=== PATIENT | female | born 1955 | race Caucasian/White ===

== ENCOUNTER 2016-07-13 08:41 | Outpatient (CLI) | payer BC | END 2016-07-13 08:42 | disposition home or self-care (01) | DX: Z12.31 Encounter for screening mammogram for malignant neoplasm of breast (principal) ==

== ENCOUNTER 2017-02-01 15:33 | Outpatient (CLI) | payer BC ==
--- NOTE | 2017-02-01 16:38 | Ultrasound Preliminary Report ---
Exam: US Duplex Ext Veins Right IMPRESSION: No evidence for deep venous thrombosis. [facility] SITE ID: [id number]
--- NOTE | 2017-02-01 16:52 | Ultrasound Report ---
EXAM: RIGHT LOWER EXTREMITY VENOUS ULTRASOUND EXAM DATE: 02/01/2017 04:13 PM. CLINICAL HISTORY: Right leg pain, swelling. COMPARISON: None. TECHNIQUE: Real-time sonographic vascular imaging was performed by the diesel locomotive crane operator through the lower extremity utilizing both color-flow and Doppler spectral analysis. Multiple solar sales representative and assessor static sammy ges were saved for review. FINDINGS: Common Femoral Vein (CFV): Normal. CFV-GSV Junction: Normal. Profunda Femoral Vein (PFV): Normal. Femoral Vein (FV) Prox: Normal. Femoral Vein (FV) Mid: Normal. Femoral Vein (FV) Dist: Normal. Popliteal Vein: Normal. Posterior Tibial Veins: Normal. Peroneal Veins: Normal. Contralateral Side CFV: Normal. Other: None. IMPRESSION: No evidence for deep venous thrombosis. [facility] Referring Provider Line: [phone] SITE ID: [id number]
== END 2017-02-01 15:34 | disposition home or self-care (01) ==
LOC: DI 15:33
PROVIDERS: ATTEND Internal Medicine
DX: M79.604 Pain in right leg (principal); R22.41 Localized swelling, mass and lump, right lower limb

== ENCOUNTER 2018-09-02 20:42 | Outpatient (CLI) | payer BC ==
--- NOTE | 2018-09-02 22:31 | Ultrasound Report ---
Reason: EDEMA/THIGH PAIN Procedure Date: 09/02/2018 Accession Number: [id number] / [id number] Procedure: US - Duplex Ext Veins Right CPT Code: FULL RESULT: EXAM: RIGHT LOWER EXTREMITY VENOUS ULTRASOUND EXAM DATE: 09/02/2018 09:29 PM. CLINICAL HISTORY: EDEMA/THIGH PAIN. COMPARISON: DUPLEX EXT VEINS RIGHT 02/01/2017 3:43 PM. TECHNIQUE: Real-time sonographic vascular imaging was performed by the teradata developer through the lower extremity utilizing both color-flow and Doppler spectral analysis. Multiple consumer sales representative static images were saved for review. FINDINGS: Common Femoral Vein (CFV): Normal. CFV-GSV Junction: Normal. Profunda Femoral Vein (PFV): Normal. Femoral Vein (FV) Prox: Normal. Femoral Vein (FV) Mid: Normal. Femoral Vein (FV) Dist: Normal. Popliteal Vein: Normal. Posterior Tibial Veins: Normal. Peroneal Veins: Normal. Other: None. IMPRESSION: No evidence for deep venous thrombosis. [facility]
--- NOTE | 2018-09-02 22:39 | Ultrasound Report ---
Reason: EDEMA/THIGH PAIN Procedure Date: 09/02/2018 Accession Number: [id number] / [id number] Procedure: US - Ext Limited Non Vascular CPT Code: FULL RESULT: EXAM: RIGHT LOWER EXTREMITY ULTRASOUND - LIMITED EXAM DATE: 09/02/2018 09:23 PM. CLINICAL HISTORY: EDEMA/THIGH PAIN. COMPARISON: None. TECHNIQUE: Real-time scanning was performed with static images obtained. FINDINGS: Imaging of the thigh demonstrates no significant abnormalities. No evidence of mass or focal fluid collection. IMPRESSION: Imaging of the thigh demonstrates no significant sonographic abnormalities. [facility]
== END 2018-09-02 20:43 | disposition home or self-care (01) ==
LOC: DI 20:42
PROVIDERS: ATTEND Internal Medicine
DX: M79.604 Pain in right leg (principal); R60.0 Localized edema
CPT/HCPCS: 76882

== ENCOUNTER 2018-11-09 19:20 | Emergency (ER) | payer BC ==
--- NOTE | 2018-11-09 20:33 | ED Physician Documentation ---
PD HPI UPPER EXT INJURY - Stated complaint Stated Complaint: RT HAND LAC - Chief complaint Chief Complaint: Laceration - History obtained from History obtained from: Patient - History of Present Illness Location: Right, Finger Type of injury: Laceration Where injury occurred: Home Timing - onset: Other Timing - duration: Hours Timing - details: Abrupt onset Recently seen: Not recently seen - Additonal information Additional information: This is a 63-year-old woman who sliced her right index finger on a mandolin slicer arreola post. This happened approximately an hour prior to presentation. She said she could get the bleeding controlled but now is controlled and it does not even look that bad. Last tetanus vaccine was greater than 5 years ago. 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 - Present Medications Home Medications: Ambulatory Orders Medication Instructions Recorded Confirmed carBAMazepine [Tegretol] 200 mg PO DAILY 05/17/13 11/09/18 - Allergies Allergies/Adverse Reactions: Allergies Allergy/AdvReac Type Severity Reaction Status Date / Time No Known Drug Allergies Allergy Verified 05/17/13 05:59 - Social History Does the pt smoke?: No Smoking Status: Never smoker Does the pt drink ETOH?: No Does the pt have substance abuse?: No - Immunizations Immunizations are current?: No Immunizations: TDAP >10years/unknown - POLST Patient has POLST: No PD ED PE NORMAL - Vitals Vital signs reviewed: Yes - General General: Alert and oriented X 3, No acute distress, Well developed/nourished - HEENT HEENT: Atraumatic - Cardiac Cardiac: RRR - Respiratory Respiratory: No respiratory distress - Extremities Extremities: Other (Laceration less than 1 cm on the pad of her right index finger. Bleeding is controlled.There does not appear to be a flap.) - Neuro Neuro: Alert and oriented X 3 Results - Vitals Vitals: Vital Signs - 24 hr 11/09/18 19:23 Temperature 36.7 C Heart Rate 70 Respiratory 14 Rate Blood Pressure 149/78 H O2 Saturation 95 Oxygen O2 Source Room air PD MEDICAL DECISION MAKING - ED course ED course: Patient was updated on her tetanus vaccine. She did not want to have this sutured. Will cover it with a bulky dressing and she is instructed on wound care. Departure - Departure Disposition: 01 Home, Self Care Clinical Impression: Laceration Condition: Good Instructions: ED Laceration Small Superf No Sutr Follow-Up: doctor, your [Other] Comments: I would recommend to keep our bandage on for about 48 hours to keep it clean and dry. After that you can remove the bandage and wash the wound. Keep it covered while it heals.
[2018-11-09] MEDS ORDERED: TETANUS/DIPHTHERIA/PERTUSSIS 0.5 ML SYRINGE IM ONE (20:36)
[2018-11-09 21:01] VITALS: BP 146/84
== END 2018-11-09 21:01 | disposition home or self-care (01) ==
LOC: ED 19:20
DX: S61.210A Laceration without foreign body of right index finger without damage to nail, initial encounter (principal); W27.4XXA Contact with kitchen utensil, initial encounter; Y93.G1 Activity, food preparation and clean up; Y92.009 Unspecified place in unspecified non-institutional (private) residence as the place of occurrence of the external cause; Z23 Encounter for immunization
CPT/HCPCS: 90471; 99282; 99283

== ENCOUNTER 2019-01-21 18:03 | Outpatient (CLI) | payer BC ==
[2019-01-21 18:37] LABS: ALBUMIN 4.3 g/dL (3.2-5.5); ALBUMIN/GLOBULIN RATIO 1.5 (1.0-2.2); ALKALINE PHOSPHATASE 83 IU/L (42-121); ALT ALANINE AMINOTRANSFERASE 20 IU/L (10-60); AST ASPARTATE AMINOTRANSFERASE 23 IU/L (10-42); BILIRUBIN,TOTAL 0.4 mg/dL (0.2-1.0); BUN - BLOOD UREA NITROGEN 23 mg/dL (6-20); CALCIUM 9.4 mg/dL (8.5-10.3); CARBON DIOXIDE - CO2 26 mmol/L (21-32); CHLORIDE 104 mmol/L (101-111); CREATININE 0.7 mg/dL (0.4-1.0); GFR - MDRD 85 (>89); GLUCOSE 124 mg/dL (70-100); SODIUM 142 mmol/L (135-145); TOTAL PROTEIN 7.1 g/dL (6.7-8.2)
[2019-01-21 19:06] LABS: CRP - C-REACTIVE PROTEIN < 1.0 mg/dL (0-1.0)
[2019-01-21 19:12] LABS: BASOPHILS # (AUTO) 0.1 10^3/uL (0.0-0.1); BASOPHILS % (AUTO) 0.8 %; EOSINOPHILS # (AUTO) 0.1 10^3/uL (0.0-0.7); EOSINOPHILS % (AUTO) 1.4 %; HGB - HEMOGLOBIN 13.3 g/dL (12.0-16.0); LYMPHOCYTES # (AUTO) 1.9 10^3/uL (1.5-3.5); LYMPHOCYTES % (AUTO) 26.4 %; MEAN CORPUSCULAR HEMOGLOBIN 31.1 pg (27.0-31.0); MEAN CORPUSCULAR HGB CONC 33.9 g/dL (32.0-36.0); MEAN CORPUSCULAR VOLUME 91.6 fL (81.0-99.0); MEAN PLATELET VOLUME 10.8 fL (7.9-10.8); MONOCYTES # (AUTO) 0.6 10^3/uL (0.0-1.0); MONOCYTES % (AUTO) 8.7 %; NEUTROPHILS # (AUTO) 4.4 10^3/uL (1.5-6.6); NEUTROPHILS % (AUTO) 62.4 %; PLT - PLATELET COUNT 213 10^3/uL (130-450); RED BLOOD COUNT 4.28 10^6/uL (4.20-5.40); RED CELL DISTRIBUTION WIDTH 13.1 % (12.0-15.0); WHITE BLOOD COUNT 7.1 x10^3/uL (4.8-10.8)
[2019-01-21 21:08] LABS: RHEUMATOID FACTOR NEGATIVE (Negative)
[2019-01-21 21:51] LABS: DIFFERENTIAL COMMENT MANUAL=AUTO DIFF; PLATELET ESTIMATE, MANUAL NORMAL (130-450,000) (NORMAL); PLATELET MORPHOLOGY NORMAL APPEARANCE (NORMAL); RBC MORPHOLOGY (MULTIPLE) NORMAL APPEARANCE (NORMAL)
--- NOTE | 2019-01-22 10:27 | XRAY Report ---
Reason: Knee Effusion, Right Procedure Date: 01/21/2019 Accession Number: [id number] / [id number] Procedure: XR - Knee 3 View RT CPT Code: FULL RESULT: EXAM: RIGHT KNEE RADIOGRAPHY EXAM DATE: 01/21/2019 06:40 PM. CLINICAL HISTORY: Right knee effusion. Swelling. Pain for 8 months. COMPARISON: None. TECHNIQUE: 3 views. FINDINGS: Bones: No acute fracture or bony lesion. Mild degenerative spurring. Joints: Mild narrowing of the medial and patellofemoral compartment. No knee effusion. No dislocation. Soft Tissues: Normal. No soft tissue swelling. IMPRESSION: 1. No osseous abnormalities. 2. Mild degenerative changes of the right knee. [facility]
[2019-01-23 12:47] LABS: ANA SCREEN NEGATIVE (NEGATIVE)
== END 2019-01-21 18:04 | disposition home or self-care (01) ==
LOC: LAB 18:03
PROVIDERS: ATTEND Family Medicine
DX: M25.461 Effusion, right knee (principal)
CPT/HCPCS: 36415; 80053; 85025; 85651; 86038; 86140; 86430

== ENCOUNTER 2021-04-04 08:05 | Outpatient (CLI) | payer BC ==
[2021-04-04 08:24] LABS: BASOPHILS % (AUTO) 0.8 %; EOSINOPHILS % (AUTO) 0.8 %; HCT - HEMATOCRIT 42.2 % (37.0-47.0); HGB - HEMOGLOBIN 14.1 g/dL (12.0-16.0); LYMPHOCYTES % (AUTO) 20.9 %; MEAN CORPUSCULAR HEMOGLOBIN 30.6 pg (27.0-31.0); MEAN CORPUSCULAR HGB CONC 33.4 g/dL (32.0-36.0); MEAN CORPUSCULAR VOLUME 91.5 fL (81.0-99.0); MONOCYTES # (AUTO) 0.5 10^3/uL (0.0-1.0); MONOCYTES % (AUTO) 10.3 %; NEUTROPHILS # (AUTO) 3.3 10^3/uL (1.5-6.6); NEUTROPHILS % (AUTO) 66.8 %; PLT - PLATELET COUNT 199 10^3/uL (130-450); RED BLOOD COUNT 4.61 10^6/uL (4.20-5.40); RED CELL DISTRIBUTION WIDTH 12.7 % (12.0-15.0)
[2021-04-04 08:35] LABS: ALBUMIN 4.5 g/dL (3.2-5.5); ALBUMIN/GLOBULIN RATIO 1.7 (1.0-2.2); ALKALINE PHOSPHATASE 100 IU/L (42-121); ALT ALANINE AMINOTRANSFERASE 16 IU/L (10-60); AST ASPARTATE AMINOTRANSFERASE 18 IU/L (10-42); BILIRUBIN,TOTAL 0.7 mg/dL (0.2-1.0); BUN - BLOOD UREA NITROGEN 23 mg/dL (6-20); CALCIUM 9.1 mg/dL (8.5-10.3); CARBON DIOXIDE - CO2 28 mmol/L (21-32); CHLORIDE 102 mmol/L (101-111); CHOL/HDL RATIO 4.9 (<4.4); CHOLESTEROL 241 mg/dL; CREATININE 0.7 mg/dL (0.4-1.0); GFR - MDRD 84 (>89); GLUCOSE 107 mg/dL (70-100); HDL CHOLESTEROL 49 mg/dL; LDL CHOLESTEROL,CALCULATED 149 mg/dL; POTASSIUM 3.3 mmol/L (3.5-5.0); SODIUM 139 mmol/L (135-145); TOTAL PROTEIN 7.1 g/dL (6.7-8.2); TRIGLYCERIDES 215 mg/dL; VLDL CHOLESTEROL 43 mg/dL
[2021-04-04 08:46] LABS: THYROID STIMULATING HORMONE 1.77 uIU/mL (0.34-5.60)
[2021-04-04 09:35] LABS: ESTIMATED AVERAGE GLUCOSE 108 mg/dL (70-100); HEMOGLOBIN A1c% 5.4 % (4.27-6.07)
== END 2021-04-04 08:06 | disposition home or self-care (01) ==
LOC: LAB 08:05
PROVIDERS: ATTEND Family Medicine
DX: Z00.00 Encounter for general adult medical examination without abnormal findings (principal); R73.9 Hyperglycemia, unspecified
CPT/HCPCS: 36415; 80053; 80061; 83036; 83721; 84443; 85025

== ENCOUNTER 2021-05-19 08:17 | Outpatient (CLI) | payer BC ==
--- NOTE | 2021-05-22 12:52 | Mammography Report ---
BILATERAL DIGITAL SCREENING MAMMOGRAM 3D/2D: 05/19/2021 CLINICAL: Routine screening. Comparison is made to exams dated: 07/13/2016 mammogram, 06/17/2015 ultrasound, 06/17/2015 mammogram, 02/05 mammogram, 12/05/2012 mammogram, and 08/25/2010 mammogram - [facility]. The ti ssue of both breasts is predominantly fatty. No significant masses, calcifications, or other findings are seen in either breast. There has been no significant interval change. IMPRESSION: NEGATIVE There is no mammographic evidence of malignancy. A 1 year screening mammogram is recommended. This exam was interpreted at Station ID: [id number]. NOTE: For mammograms, a report in lay terms will be sent to the patient. Approximately 15% of breast malignancies will not be visualized mammographically. In the management of a palpable breast mass, a negative mammogram must not discourage biopsy of a clinically suspicious lesion. Electronically Signed By: Tay [email or web address]:05/19/2021 13:07:24 ACR BI-RADS Category 1: Negative 3341F PARENCHYMAL PATTERN: (F) - The breast(s) demonstrate(s) diffuse fatty replacement. BI-RADS CATEGORY: (1) - 1 RECOMMENDATION: (ANNUAL) - Recommend routine annual screening mammography. [id number] 1 year screening LATERALITY: (B)
== END 2021-05-19 08:18 | disposition home or self-care (01) ==
LOC: DI 08:17
PROVIDERS: ATTEND Family Medicine
DX: Z12.31 Encounter for screening mammogram for malignant neoplasm of breast (principal)

== ENCOUNTER 2022-08-13 07:29 | Outpatient (CLI) | payer BC ==
[2022-08-13 07:44] LABS: BASOPHILS # (AUTO) 0.1 10^3/uL (0.0-0.1); EOSINOPHILS % (AUTO) 0.6 %; HCT - HEMATOCRIT 40.7 % (37.0-47.0); HGB - HEMOGLOBIN 13.9 g/dL (12.0-16.0); LYMPHOCYTES % (AUTO) 21.4 %; MEAN CORPUSCULAR HGB CONC 34.2 g/dL (32.0-36.0); MEAN CORPUSCULAR VOLUME 90.6 fL (81.0-99.0); MEAN PLATELET VOLUME 9.9 fL (7.9-10.8); MONOCYTES # (AUTO) 0.4 10^3/uL (0.0-1.0); MONOCYTES % (AUTO) 8.8 %; NEUTROPHILS # (AUTO) 3.3 10^3/uL (1.5-6.6); NEUTROPHILS % (AUTO) 67.6 %; PLT - PLATELET COUNT 214 10^3/uL (130-450); RED BLOOD COUNT 4.49 10^6/uL (4.20-5.40); RED CELL DISTRIBUTION WIDTH 13.2 % (12.0-15.0); WHITE BLOOD COUNT 4.9 x10^3/uL (4.8-10.8)
[2022-08-13 07:58] LABS: ALBUMIN/GLOBULIN RATIO 1.5 (1.0-2.2); ALKALINE PHOSPHATASE 84 IU/L (42-121); ALT ALANINE AMINOTRANSFERASE 21 IU/L (10-60); AST ASPARTATE AMINOTRANSFERASE 22 IU/L (10-42); BILIRUBIN,TOTAL 0.7 mg/dL (0.2-1.0); BUN - BLOOD UREA NITROGEN 20 mg/dL (6-20); CALCIUM 9.1 mg/dL (8.5-10.3); CARBON DIOXIDE - CO2 28 mmol/L (21-32); CHLORIDE 106 mmol/L (101-111); CHOLESTEROL 230 mg/dL; CREATININE 0.7 mg/dL (0.4-1.0); GFR - MDRD 84 (>89); GLUCOSE 107 mg/dL (70-100); HDL CHOLESTEROL 57 mg/dL; LDL CHOLESTEROL,CALCULATED 151 mg/dL; LDL/HDL RATIO 2.6 (<4.4); POTASSIUM 3.6 mmol/L (3.5-5.0); SODIUM 141 mmol/L (135-145); TOTAL PROTEIN 6.7 g/dL (6.7-8.2); TRIGLYCERIDES 108 mg/dL; VLDL CHOLESTEROL 22 mg/dL
[2022-08-13 08:10] LABS: THYROID STIMULATING HORMONE 1.85 uIU/mL (0.34-5.60)
[2022-08-13 09:46] LABS: ESTIMATED AVERAGE GLUCOSE 108 mg/dL (70-100); HEMOGLOBIN A1c% 5.4 % (4.27-6.07)
== END 2022-08-13 07:30 | disposition home or self-care (01) ==
LOC: LAB 07:29
PROVIDERS: ATTEND Family Medicine
DX: R56.9 Unspecified convulsions (principal); R73.9 Hyperglycemia, unspecified
CPT/HCPCS: 36415; 80053; 80061; 83036; 83721; 84443; 85025

== ENCOUNTER 2022-10-05 07:33 | Outpatient (CLI) | payer BC ==
[2022-10-05 08:37] LABS: GLUCOSE, URINE (UA) NEGATIVE (NEGATIVE); KETONES,URINE (UA) TRACE mg/dL (NEGATIVE); LEUKOCYTE ESTERASE, URINE NEGATIVE (NEGATIVE); NITRITE,URINE NEGATIVE (NEGATIVE); OCCULT BLOOD,URINE TRACE-INTA (NEGATIVE); PH,URINE 5.5 PH (5.0-7.5); PROTEIN,URINE 30 mg/dL (NEGATIVE); UROBILINOGEN,URINE 0.2 (NORMAL) E.U./dL (NORMAL)
[2022-10-05 09:17] LABS: BACTERIA,URINE Few /HPF (None Seen); BILIRUBIN,URINE NEGATIVE (NEGATIVE); CLARITY,URINE HAZY (CLEAR); CRYSTALS,URINE 11-25 Ca Oxalate /LPF; ICTOTEST,URINE NEGATIVE; RBC,URINE 0-5 /HPF (0-5); SQUAMOUS EPITHELIAL CELL,UR FEW Squamous (<= Few); WBC,URINE 0-3 /HPF (0-5)
== END 2022-10-05 07:34 | disposition home or self-care (01) ==
LOC: LAB 07:33
PROVIDERS: ATTEND Family Medicine
DX: R32 Unspecified urinary incontinence (principal)
CPT/HCPCS: 81001; 87086

== ENCOUNTER 2022-11-07 19:29 | Observation (INO) | payer BC ==
--- NOTE | 2022-11-07 19:45 | ED Physician Documentation ---
PD HPI ABD PAIN - Stated complaint Stated Complaint: ABD PX,WEAKNESS - Chief complaint Chief Complaint: Abd Pain - History obtained from History obtained from: Patient - Additional information Additional information: 67-year-old woman with history of remote cholecystectomy and well-controlled epilepsy presents with diffuse abdominal cramping starting this morning. It is associated with nausea but no vomiting. She has had normal bowel movements including 1 today with this. No fevers. She did ate lunch which did not make her pain worse. That said she does have decreased appetite. 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, Other - Present Medications Home Medications: Ambulatory Orders Medication Instructions Recorded Confirmed carBAMazepine [Tegretol] 200 mg PO DAILY 05/17/13 11/09/18 - Allergies Allergies/Adverse Reactions: Allergies Allergy/AdvReac Type Severity Reaction Status Date / Time No Known Drug Allergies Allergy Verified 11/07/22 19:33 - Social History Does the pt smoke?: No Smoking Status: Never smoker Does the pt drink ETOH?: No Does the pt have substance abuse?: No - Immunizations Immunizations are current?: No Immunizations: TDAP >10years/unknown - POLST Patient has POLST: No PD ED PE NORMAL - Vitals Vital signs reviewed: Yes - General General: Alert and oriented X 3, No acute distress - Cardiac Cardiac: RRR, No murmur - Respiratory Respiratory: No respiratory distress, Clear bilaterally - Abdomen Abdomen: Other (Mild right lower quadrant tenderness without surgical signs. Normal bowel sounds.) - Neuro Neuro: Alert and oriented X 3, Normal speech Results - Vitals Vitals: Vital Signs - 24 hr 11/07/22 11/07/22 19:33 20:19 Temperature 36.5 C Heart Rate 79 78 Respiratory 16 16 Rate Blood Pressure 140/78 H 139/87 H O2 Saturation 96 100 Oxygen O2 Source Room air - Labs Labs: Laboratory Tests 11/07/22 11/07/22 11/07/22 19:38 19:58 19:58 WBC 9.1 RBC 4.68 Hgb 14.3 Hct 42.5 MCV 90.8 MCH 30.6 MCHC 33.6 RDW 12.7 Plt Count 251 MPV 10.2 Neut # (Auto) 7.5 H Lymph # (Auto) 1.0 L [place] # (Auto) 0.5 Eos # (Auto) 0.0 Baso # (Auto) 0.1 Absolute Nucleated RBC 0.00 Nucleated RBC % 0.0 Sodium 139 Potassium 3.5 Chloride 101 Carbon Dioxide 29 Anion Gap 9.0 BUN 13 Creatinine 0.8 Estimated GFR (MDRD) 72 L Glucose 134 H Calcium 9.7 Total Bilirubin 0.5 AST 22 ALT 18 Alkaline Phosphatase 99 Total Protein 7.2 Albumin 4.4 Globulin 2.8 Albumin/Globulin Ratio 1.6 Lipase 36 Urine Color YELLOW Urine Clarity CLEAR Urine pH 7.5 Ur Specific [place] 1.010 Urine Protein NEGATIVE Urine Glucose (UA) NEGATIVE Urine Ketones NEGATIVE Urine Occult Blood SMALL H Urine Nitrite NEGATIVE Urine Bilirubin NEGATIVE Urine Urobilinogen 0.2 (NORMAL) Ur Leukocyte Esterase SMALL H Urine RBC 6-10 H Urine WBC 4-5 Ur Squamous Epith Cells FEW Squamous Urine Bacteria Rare Ur Microscopic Review INDICATED Urine Culture Comments INDICATED - Rads (name of study) CT a/p Relevant Findings:: Final report received, EMP independent interpretation of test PD Medical Decision Making - ED course ED course: 67-year-old woman with history of hysterectomy presents with crampy abdominal pain today and slightly hyperactive tinkling bowel sounds. She is a little tender and CT demonstrating partial SBO versus ileus. Spoke with Dr. Marco Antonio rojas, our on-call surgeon at 10 PM and he will see the patient and admit her. Patient had not initially wanted any pain medication but has changed her mind at that time as well. Departure - Departure Disposition: 66 [facility] DC/Xfer Clinical Impression: SBO (small bowel obstruction) Condition: Stable
[2022-11-07 19:47] LABS: BILIRUBIN,URINE NEGATIVE (NEGATIVE); GLUCOSE, URINE (UA) NEGATIVE (NEGATIVE); KETONES,URINE (UA) NEGATIVE (NEGATIVE); LEUKOCYTE ESTERASE, URINE SMALL (NEGATIVE); NITRITE,URINE NEGATIVE (NEGATIVE); OCCULT BLOOD,URINE SMALL (NEGATIVE); PH,URINE 7.5 PH (5.0-7.5); PROTEIN,URINE NEGATIVE (NEGATIVE); UROBILINOGEN,URINE 0.2 (NORMAL) E.U./dL (NORMAL)
[2022-11-07 19:50] LABS: CLARITY,URINE CLEAR (CLEAR)
[2022-11-07 20:00] LABS: BACTERIA,URINE Rare /HPF (None Seen); SQUAMOUS EPITHELIAL CELL,UR FEW Squamous (<= Few)
[2022-11-07 20:03] LABS: BASOPHILS # (AUTO) 0.1 10^3/uL (0.0-0.1); BASOPHILS % (AUTO) 0.5 %; HCT - HEMATOCRIT 42.5 % (37.0-47.0); HGB - HEMOGLOBIN 14.3 g/dL (12.0-16.0); LYMPHOCYTES % (AUTO) 11.3 %; MEAN CORPUSCULAR HEMOGLOBIN 30.6 pg (27.0-31.0); MEAN CORPUSCULAR HGB CONC 33.6 g/dL (32.0-36.0); MEAN CORPUSCULAR VOLUME 90.8 fL (81.0-99.0); MEAN PLATELET VOLUME 10.2 fL (7.9-10.8); MONOCYTES # (AUTO) 0.5 10^3/uL (0.0-1.0); MONOCYTES % (AUTO) 5.7 %; NEUTROPHILS # (AUTO) 7.5 10^3/uL (1.5-6.6); NEUTROPHILS % (AUTO) 82.3 %; PLT - PLATELET COUNT 251 10^3/uL (130-450); RED BLOOD COUNT 4.68 10^6/uL (4.20-5.40); RED CELL DISTRIBUTION WIDTH 12.7 % (12.0-15.0); WHITE BLOOD COUNT 9.1 x10^3/uL (4.8-10.8)
[2022-11-07 20:16] LABS: ALBUMIN 4.4 g/dL (3.2-5.5); ALBUMIN/GLOBULIN RATIO 1.6 (1.0-2.2); BILIRUBIN,TOTAL 0.5 mg/dL (0.2-1.0); CALCIUM 9.7 mg/dL (8.5-10.3); CREATININE 0.8 mg/dL (0.4-1.0); POTASSIUM 3.5 mmol/L (3.5-5.0); TOTAL PROTEIN 7.2 g/dL (6.7-8.2)
[2022-11-07] MEDS ORDERED: iohexoL-300 100 ML VIAL IVP ONE (20:59)
--- NOTE | 2022-11-07 21:49 | CT Report ---
PROCEDURE: ABDOMEN/PELVIS W INDICATIONS: abd pain CONTRAST: 100mL Omni 350 TECHNIQUE: After the administration of intravenous contrast, 5 mm thick sections acquired from the diaphragms to the symphysis. 5 mm thick coronal and sagittal reformats were acquired. For radiation dose reducti on, the following was used: automated exposure control, adjustment of mA and/or kV according to tiburcio ent size. COMPARISON: None. FINDINGS: Image quality: Excellent. Lung bases:There is mild atelectasis and scarring in the lung bases. Heart: Heart is normal in size. There is a small hiatal hernia. ABDOMEN: Liver:There are 2 small hypodense foci within the liver which are too small to characterize but like ly represent cysts. There is mild hypoattenuation of the liver suggestive of fatty infiltration. Gallbladder: Within normal limits without calcified gallstones. Biliary ducts: No biliary ductal dilatation. Pancreas: Unremarkable. Spleen: Normal in size. Adrenal Glands: No adrenal nodules. Kidneys and Ureters: No hydronephrosis. Stomach and Bowel:There is mild fluid distention of multiple loops of small bowel proximally predomi nately in the left upper quadrant, measuring up to 3.0 cm with air-fluid levels. There is a gradual t ransition point in the left lower quadrant as seen on series 3 image 52 and coronal series 6 image 18 . More distal loops of small bowel are nondistended. No pericecal inflammatory changes to suggest kerry endicitis. The colon demonstrates a small to moderate amount of fecal loading. Peritoneum: No abnormal intraperitoneal fluid. No free air. Ventral Wall: No hernia. Abdominal Nodes: No retroperitoneal or mesenteric adenopathy by size criteria. Vessels: Aorta and inferior vena cava are normal in size. PELVIS: Pelvic Organs: Unremarkable. Bladder: Unremarkable. Pelvic Nodes: No enlarged lymph nodes. Miscellaneous: No inguinal hernias. Bones: Visualized osseous structures demonstrate no suspicious lesions. IMPRESSION: 1. Mild segmental distention of the proximal small bowel with a gradual transition point in the left lower quadrant. The findings are compatible with a partial or early small bowel obstruction versus an ileus. Reviewed by: Devin Bhakta MD on 11/07/2022 9:47 PM PDT Approved by: Devin Bhakta MD on 11/07/2022 9:47 PM PDT Station ID: [id number]
[2022-11-07] MEDS ORDERED: D5.45NS W/20 MEQ KCL 1,000 ML IV STA (21:59)
[2022-11-07] MEDS ORDERED: KETOROLAC 15 MG/ML VIAL IVP STA (21:59)
[2022-11-07] MEDS ORDERED: MORPHINE 2 MG/ML CARPUJECT IVP STA (22:00)
[2022-11-07] MEDS ORDERED: HYDROmorphone 0.5 MG/0.5 ML SYRINGE IVP PRN (22:36)
[2022-11-07] MEDS ORDERED: SODIUM CHLORIDE FLUSH 0.9% 10 ML SYRINGE IVP PRN (22:36)
[2022-11-07] MEDS ORDERED: ONDANSETRON 4 MG/2 ML VIAL IVP PRN (22:36)
--- NOTE | 2022-11-07 22:51 | HISTORY & PHYSICAL EXAMINATION ---
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 Throughout the day the cramping persisted, worsened, and was associated with nausea and anorexia. She came to the ED for evaluation and was found to have CT image evidence of a partial or early SBO. She denies previous episodes of discomfort. Her PSH includes a hysterectomy about 20 years ago. She denies fevers but has felt chilled. History - Past Medical History Respiratory: reports: None Neuro: reports: Seizure disorder Endocrine/Autoimmune: reports: None GI: reports: Other (Obstipation) PLUGMAN: reports: None : reports: None HEENT: reports: None Psych: reports: None Musculoskeletal: reports: None Derm: reports: None MRSA Hx?: No - Past Surgical History /PLUGMAN: reports: Hysterectomy, Other - Family & Social History Living arrangement: At home Living Situation: With spouse/s.o. - Substance History Use: Uses substance without health or social issues: NONE - POLST Patient has POLST: No Meds/Allgy - Home Medications Home Medications: Ambulatory Orders Medication Instructions Recorded Confirmed carBAMazepine [Tegretol] 200 mg PO DAILY 05/17/13 11/09/18 - Allergies Allergies/Adverse Reactions: Allergies Allergy/AdvReac Type Severity Reaction Status Date / Time No Known Drug Allergies Allergy Verified 11/07/22 19:33 Review of Systems - Constitutional Constitutional: reports: Chills, Poor appetite - Gastrointestinal Gastrointestinal: reports: Abdominal pain, Abdominal distention, Poor appetite, Other (Obstipation) - All Other Systems All Other Systems: reports: Reviewed and negative Exam - Vital Signs Vital Signs: Vital Signs x48h Temp Pulse Resp BP Pulse Ox 11/07/22 22:20 62 16 172/97 H 97 11/07/22 22:17 61 18 175/97 H 96 11/07/22 20:19 78 16 139/87 H 100 11/07/22 19:33 97.7 F 79 16 140/78 H 96 - Physical Exam General Appearance: positive: Alert, Mild distress Eyes Bilateral: positive: Normal inspection, PERRL, EOMI ENT: positive: Pharynx nml, No signs of dehydration Neck: positive: Nml inspection, Thyroid nml, Trachea midline Respiratory: positive: Chest non-tender, No respiratory distress, Breath sounds nml Cardiovascular: positive: Regular rate & rhythm, No murmur Peripheral Pulses: positive: 2+ Abdomen: positive: Non-tender, Nml bowel sounds, Other (Distended, tympanic percussion note upper quadrants) Skin: positive: Color nml, Warm Extremities: positive: Non-tender, Full ROM Neurologic/Psychiatric: positive: Oriented x3 Conclusion/Plan - Lab Results Fish Bones: 11/07/22 19:58 11/07/22 19:58 - Other Other Results/Comments: Images: CT ABD/Pelvis: Distended proximal small bowel and stomach with decompressed distal small bowel. No evidence of bowel ischemia. Assessment: 1) SBO, unknown if partial or complete. No clinical or image evidence of bowel ischemia at this time 2) Seizure disorder Plan: 1) Admit to Observation status 2) Continue IV hydration with Ringers 3) NGT decompression to encourage early bowel motility and decrease discomfort from abdominal bloating and cramping 4) May ambulate with assistance 5) Tegretol tonight with NGT clamped 6) Labs in am 7) Consider small bowel follow through in am if not improved Marco Antonio Pablo MD General Surgery Service
[2022-11-07] MEDS ORDERED: KETOROLAC 30 MG/ML VIAL IVP SCH (23:00)
--- NOTE | 2022-11-08 01:41 | XRAY Report ---
PROCEDURE: Chest for Line Placement INDICATIONS: line placement TECHNIQUE: One view of the chest was acquired. COMPARISON: None. FINDINGS: Surgical changes and devices: There is a nasogastric tube extending into the stomach.. Lungs and pleura: No pleural effusions or pneumothorax. Lungs are clear. Mediastinum: Mediastinal contours appear normal. Heart size is normal. Bones and chest wall: No suspicious bony lesions. Overlying soft tissues appear unremarkable. IMPRESSION: 1. Nasogastric tube extends into the stomach. 2. No acute cardiopulmonary disease. Reviewed by: Devin Kamara MD on 11/08/2022 1:40 AM PDT Approved by: Devin Kamara MD on 11/08/2022 1:40 AM PDT Station ID: [id number]
[2022-11-08] MEDS: carBAMazepine 200 MG TABLET PO SCH ×4 (01:54→20:52)
[2022-11-08] MEDS: LACTATED RINGERS 1,000 ML IV SCH ×3 (01:54→17:22)
[2022-11-08] MEDS: SODIUM CHLORIDE FLUSH 0.9% 10 ML SYRINGE IVP SCH ×3 (01:55→18:23)
[2022-11-08 06:18] LABS: BASOPHILS # (AUTO) 0.1 10^3/uL (0.0-0.1); BASOPHILS % (AUTO) 0.6 %; EOSINOPHILS % (AUTO) 0.1 %; HGB - HEMOGLOBIN 12.9 g/dL (12.0-16.0); LYMPHOCYTES # (AUTO) 1.4 10^3/uL (1.5-3.5); MEAN CORPUSCULAR HEMOGLOBIN 30.4 pg (27.0-31.0); MEAN CORPUSCULAR HGB CONC 33.1 g/dL (32.0-36.0); MEAN CORPUSCULAR VOLUME 91.8 fL (81.0-99.0); MEAN PLATELET VOLUME 10.1 fL (7.9-10.8); MONOCYTES # (AUTO) 0.8 10^3/uL (0.0-1.0); MONOCYTES % (AUTO) 10.4 %; NEUTROPHILS # (AUTO) 5.5 10^3/uL (1.5-6.6); NEUTROPHILS % (AUTO) 70.5 %; PLT - PLATELET COUNT 209 10^3/uL (130-450); RED BLOOD COUNT 4.25 10^6/uL (4.20-5.40); RED CELL DISTRIBUTION WIDTH 12.9 % (12.0-15.0); WHITE BLOOD COUNT 7.9 x10^3/uL (4.8-10.8)
[2022-11-08 06:26] LABS: CALCIUM 8.8 mg/dL (8.5-10.3); CREATININE 0.8 mg/dL (0.4-1.0); POTASSIUM 3.6 mmol/L (3.5-5.0)
--- NOTE | 2022-11-08 06:46 | PROVIDER PROGRESS NOTE ---
Progress Note General Surgery progress Note S: Less abdominal cramping; Feels like she might pass gas but hasn't yet. Able to walk and urinate O: VSS, afeb; Lungs clear; Heart NSR; Abdomen less distended, no tympany, bowel sounds present; NGT with small amount of succus Labs: Improved A: SBO, partial vs complete; no clinical evidence or ischemia P: Ambulate; Gastrografin SB challenge today Marco Antonio Pablo MD General Surgery Service
[2022-11-08] MEDS ORDERED: DIATR MEGLU/DIATRIZOATE SODIUM 120 ML BOTTLE ONE (07:35)
[2022-11-08] MEDS: KETOROLAC 30 MG/ML VIAL IVP SCH ×3 (07:59→19:44)
[2022-11-08] MEDS ORDERED: DIATR MEGLU/DIATRIZOATE SODIUM 120 ML BOTTLE PO ONE (08:26)
--- NOTE | 2022-11-08 08:57 | XRAY Report ---
PROCEDURE: SBFT Challenge Panel INDICATIONS: SBO - Partial vs Complete COMPARISON: CT 11/07/2022 CONTRAST: Gastrografin FLUOROSCOPY TIME: 9 FINDINGS: KUB: Preprocedural broker assistant film demonstrates a normal bowel gas pattern. No suspicious abdominal calc ifications. Visualized solid organ contours appear normal. No suspicious bony abnormalities. Small bowel: There is accelerated transit time of barium through the small bowel. Small bowel loops are of normal caliber throughout. Mucosal folds are smooth and of normal thickness. No strictures, intraluminal masses, or extrinsic mass effects are noted. The terminal ileum is identified, and is normal in morphology. IMPRESSION: Accelerated transit time of Gastrografin through the small bowel, completing the Gastrografin challen ge within 30 minutes. Findings do not suggest small bowel obstruction. Reviewed by: Dillon Slater on 11/08/2022 8:56 AM PDT Approved by: Dillon Slater on 11/08/2022 8:56 AM PDT Station ID: [id number]
[2022-11-08] MEDS: HEPARIN 5,000 UNIT/ML VIAL SUBQ SCH ×2 (10:14→20:53)
--- NOTE | 2022-11-08 11:11 | PHARMACY PROGRESS NOTE ---
- Best Possible Medication History Admit Date and Time: 11/07/22 6378 Processed by: Pharmacy Medication History completed: Yes Patient Interview: Completed Secondary Source(s): Pharmacy records, Insurance records As the person ultimately responsible for medication therapy, providers are able to order a medication from an existing home medication list in [facility] via the "Reconcile Routine" prior to Confirmation of that medication by support assistant. Such practice is discouraged except when the physician, in their clinical judgment, deems that a medical need exists for a medication without regard to previous use.
--- NOTE | 2022-11-08 15:26 | PROVIDER PROGRESS NOTE ---
Progress Note General Surgery Afternoon Progress Note S: Avani has been ambulatory and has tolerated the SBFT without difficulty. She has had tqo small bowel motions and has passed flatus. O: VSS, afeb; Comfortable; Abdomen is soft and not distended; BS active; NGT with scant output SBFT: Contrast in colon within 30 minutes of administration A: pSBO - resolved P: Remove NGT; Start clears; Will advance diet over next 24 hours and plan for discharge tomorrow. Marco Antonio Pablo MD General Surgery Service
[2022-11-09] MEDS: SODIUM CHLORIDE FLUSH 0.9% 10 ML SYRINGE IVP SCH ×2 (01:49→08:25)
[2022-11-09] MEDS: KETOROLAC 30 MG/ML VIAL IVP SCH (01:54)
[2022-11-09] MEDS: LACTATED RINGERS 1,000 ML IV SCH (06:16)
--- NOTE | 2022-11-09 07:46 | PROVIDER PROGRESS NOTE ---
Progress Note General Surgery Progress Note S: Progressing well; Tolerated clears last night. Passing flatus. No abdominal cramping or pain; Ambulatory O: VSS, afeb; Lungs clear; Heart NSR; Abdomen soft, non distended; Non tender; Active BS A: Resolved PSBO P: Advance to general diet. SL IV; If no issues I will discharge later this morning. Marco Antonio Pablo MD General Surgery Service
[2022-11-09] MEDS: carBAMazepine 200 MG TABLET PO SCH (08:25)
[2022-11-09] MEDS: HEPARIN 5,000 UNIT/ML VIAL SUBQ SCH (08:25)
--- NOTE | 2022-11-09 12:29 | Discharge Plan ---
Discharge Plan Problem Reviewed?: Yes Disposition: Home, Self Care Condition: Good Diet: Regular Activity Restrictions: Activity as Tolerated Shower Restrictions: No Driving Restrictions: No Assessment: PSBO with spontaneous resolution. Diet and activity as tolerated Miralax or MOM for constipation No Smoking: If you smoke, Please STOP! Call for help. Follow-up with: Jose Juan Cevallos MD [Primary Care Provider] -
--- NOTE | 2022-11-09 12:29 | PROVIDER PROGRESS NOTE ---
Progress Note General Surgery Progress Note S: No trouble with breakfast or lunch; Ambulatory; Ready to go home O: AAO; Abdomen benign Assessment: 1) Resolved PSBO Plan: 1) Discharge to home 2) Continue Tegratol 3) Diet as tolerated 4) FU PCP as needed Marco Antonio Pablo MD General Surgery Service [phone]
--- NOTE | 2022-11-09 12:36 | DISCHARGE SUMMARY ---
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 Throughout the day the cramping persisted, worsened, and was associated with nausea and anorexia. She came to the ED for evaluation and was found to have CT image evidence of a partial or early SBO. She denies previous episodes of discomfort. Her PSH includes a hysterectomy about 20 years ago. She denies fevers but has felt chilled. - CONSULTS | PROCEDURES Procedures: Small bowel Follow Through Study - HOSPITAL COURSE Hospital Course: Uncomplicated. NGT placed at admission at 2300 on 11/07/22. The next morning she underwent a SBFT study that revealed transit of contrast into the colon within 30 minutes. Her NGT was removed and her diet was advanced from clear liquids to general. On the day of discharge, she was ambulatory, was tolerating a general diet, was having no further abdominal cramping, and was moving her bowels. - ALLERGIES Allergies/Adverse Reactions: Allergies Allergy/AdvReac Type Severity Reaction Status Date / Time No Known Drug Allergies Allergy Verified 11/07/22 19:33 - MEDICATIONS Home Medications: Ambulatory Orders Medication Instructions Recorded Confirmed Biotin 1 cap PO DAILY 11/08/22 11/08/22 carBAMazepine [Carbamazepine ER] 200 mg PO QPM 11/08/22 11/08/22 oxyBUTYnin chloride [Oxybutynin 5 mg PO BID PRN 11/08/22 11/08/22 Chloride] - PHYSICAL EXAM AT DISCHARGE General Appearance: positive: No acute distress, Alert Eyes Bilateral: positive: Normal inspection ENT: positive: ENT inspection nml Neck: positive: Nml inspection Respiratory: positive: Chest non-tender, Breath sounds nml Cardiovascular: positive: Regular rate & rhythm, No murmur Peripheral Pulses: positive: 2+ Abdomen: positive: Non-tender, Nml bowel sounds, No distention Skin: positive: Color nml, Warm Extremities: positive: Full ROM Neurologic/Psychiatric: positive: Oriented x3 - LABS Result Diagrams: 11/08/22 06:13 11/08/22 06:13 - DIAGNOSTIC IMAGING Diagnostic Imaging Results: See rad report - QUALITY (Female Hip Fx Only) Was patient sent home on osteoporosis medication?: No - FOLLOW UP Follow Up: Follow up with her PCP as needed or to the ED if her symptoms recur."
[2022-11-09 12:48] VITALS: BP 151/74
== END 2022-11-09 13:20 | disposition home or self-care (01) ==
LOC: ED 19:29 → MS2 22:37
PROVIDERS: ADMIT Surgery; ATTEND Surgery
DX: K56.600 Partial intestinal obstruction, unspecified as to cause (principal); G40.909 Epilepsy, unspecified, not intractable, without status epilepticus; Z79.899 Other long term (current) drug therapy
CPT/HCPCS: 36415; 74177; 74250; 80048; 80053; 81001; 83690; 85025; 87086; 96374; 96375; 96376; 99284; 99285; A9270; G0378; J7120; Q9963; Q9967; 81003

== ENCOUNTER 2022-11-11 20:13 | Observation (INO) | payer BC ==
[2022-11-11] MEDS ORDERED: fentaNYL 100 MCG/2 ML VIAL IVP PRN (20:46)
[2022-11-11] MEDS ORDERED: ONDANSETRON 4 MG/2 ML VIAL IVP STA (20:46)
[2022-11-11] MEDS ORDERED: SODIUM CHLORIDE 0.9% 1,000 ML IV STA (20:46)
[2022-11-11 20:51] LABS: BASOPHILS % (AUTO) 0.5 %; EOSINOPHILS % (AUTO) 0.1 %; HGB - HEMOGLOBIN 14.7 g/dL (12.0-16.0); LYMPHOCYTES # (AUTO) 1.4 10^3/uL (1.5-3.5); LYMPHOCYTES % (AUTO) 16.2 %; MEAN CORPUSCULAR HEMOGLOBIN 30.3 pg (27.0-31.0); MEAN CORPUSCULAR HGB CONC 34.2 g/dL (32.0-36.0); MEAN CORPUSCULAR VOLUME 88.7 fL (81.0-99.0); MEAN PLATELET VOLUME 9.9 fL (7.9-10.8); MONOCYTES # (AUTO) 0.7 10^3/uL (0.0-1.0); MONOCYTES % (AUTO) 8.5 %; NEUTROPHILS # (AUTO) 6.5 10^3/uL (1.5-6.6); NEUTROPHILS % (AUTO) 74.5 %; PLT - PLATELET COUNT 252 10^3/uL (130-450); RED BLOOD COUNT 4.85 10^6/uL (4.20-5.40); RED CELL DISTRIBUTION WIDTH 12.4 % (12.0-15.0); WHITE BLOOD COUNT 8.7 x10^3/uL (4.8-10.8)
[2022-11-11 20:55] LABS: BILIRUBIN,URINE NEGATIVE (NEGATIVE); GLUCOSE, URINE (UA) NEGATIVE (NEGATIVE); KETONES,URINE (UA) TRACE mg/dL (NEGATIVE); LEUKOCYTE ESTERASE, URINE SMALL (NEGATIVE); NITRITE,URINE NEGATIVE (NEGATIVE); OCCULT BLOOD,URINE SMALL (NEGATIVE); PROTEIN,URINE TRACE mg/dL (NEGATIVE); UROBILINOGEN,URINE 0.2 (NORMAL) E.U./dL (NORMAL)
[2022-11-11 20:56] LABS: CLARITY,URINE HAZY (CLEAR)
[2022-11-11 21:08] LABS: ALBUMIN 4.7 g/dL (3.2-5.5); ALBUMIN/GLOBULIN RATIO 1.5 (1.0-2.2); BILIRUBIN,TOTAL 0.7 mg/dL (0.2-1.0); CALCIUM 9.5 mg/dL (8.5-10.3); CREATININE 0.9 mg/dL (0.4-1.0); TOTAL PROTEIN 7.9 g/dL (6.7-8.2)
[2022-11-11 21:11] LABS: AMORPHOUS SEDIMENT,UR Few /LPF; BACTERIA,URINE Few /HPF (None Seen); RBC,URINE 0-5 /HPF (0-5); SQUAMOUS EPITHELIAL CELL,UR FEW Squamous (<= Few)
[2022-11-11] MEDS ORDERED: POTASSIUM CHLOR 10 MEQ/100 ML 10 MEQ/100 ML BAG IV STA (21:16)
--- NOTE | 2022-11-11 21:46 | ED Physician Documentation ---
History of Present Illness - Stated complaint Stated Complaint: BACK/ABD PX - Chief complaint Chief Complaint: Abd Pain - Additonal information Additional information: Patient is 67-year-old female presenting to the emergency department with abdominal pain with associated nausea and vomiting. Past medical significant for recent hospitalization for partial small bowel obstruction, discharged 11/09/2022. Additionally has medical history of seizure disorder as well as hysterectomy 20 years ago. Reported was feeling well after discharge from the hospital however day began developing intermittent episodes of abdominal cramping with some associated nausea and vomiting. Reports normal bowel movements at that time. Woke this morning with increasing pain with multiple episodes of nonbloody Nonbiliousvomiting. Does report that her last bowel movement was this morning and was also nonbloody. Review of Systems Constitutional: denies: Fever Eyes: denies: Loss of vision Ears: denies: Loss of hearing Nose: denies: Rhinorrhea / runny nose Throat: denies: Dental pain / toothache Cardiac: denies: Chest pain / pressure Respiratory: denies: Dyspnea GI: reports: Abdominal Pain, Nausea, Vomiting PD PAST MEDICAL HISTORY - Past Medical History Respiratory: None Neuro: Seizure disorder Endocrine/Autoimmune: None GI: Other LEASE PICKER: None : None HEENT: None Psych: None Musculoskeletal: None Derm: None - Past Surgical History Past Surgical History: Yes /LEASE PICKER: Hysterectomy, Other - Present Medications Home Medications: Ambulatory Orders Medication Instructions Recorded Confirmed Biotin 1 cap PO DAILY 11/08/22 11/08/22 carBAMazepine [Carbamazepine ER] 200 mg PO QPM 11/08/22 11/08/22 oxyBUTYnin chloride [Oxybutynin 5 mg PO BID PRN 11/08/22 11/08/22 Chloride] - Allergies Allergies/Adverse Reactions: Allergies Allergy/AdvReac Type Severity Reaction Status Date / Time No Known Drug Allergies Allergy Verified 11/11/22 20:16 - Social History Does the pt smoke?: No Smoking Status: Never smoker Does the pt drink ETOH?: No Does the pt have substance abuse?: No - Immunizations Immunizations are current?: No Immunizations: TDAP >10years/unknown - POLST Patient has POLST: No PD ED PE NORMAL - General General: Alert and oriented X 3, Well developed/nourished, Other (Patient actively vomiting on arrival). No: No acute distress - HEENT HEENT: Atraumatic - Neck Neck: Supple, no meningeal sign - Cardiac Cardiac: RRR - Abdomen Abdomen: Other (Distended abdomen, Diminished bowel sounds) Results - Vitals Vitals: Vital Signs - 24 hr 11/11/22 11/11/22 11/11/22 20:16 20:38 21:47 Temperature 36.5 C Heart Rate 77 73 69 Respiratory 18 20 12 Rate Blood Pressure 137/96 H 156/84 H 149/79 H O2 Saturation 97 97 98 Oxygen O2 Source Room air - Labs Labs: Laboratory Tests 11/11/22 11/11/22 11/11/22 20:42 20:42 20:42 WBC 8.7 RBC 4.85 Hgb 14.7 Hct 43.0 MCV 88.7 MCH 30.3 MCHC 34.2 RDW 12.4 Plt Count 252 MPV 9.9 Neut # (Auto) 6.5 Lymph # (Auto) 1.4 L Humphreys # (Auto) 0.7 Eos # (Auto) 0.0 Baso # (Auto) 0.0 Absolute Nucleated RBC 0.00 Nucleated RBC % 0.0 Sodium 135 Potassium 3.0 L Chloride 97 L Carbon Dioxide 28 Anion Gap 10.0 BUN 16 Creatinine 0.9 Estimated GFR (MDRD) 63 L Glucose 122 H Lactic Acid 1.1 Calcium 9.5 Total Bilirubin 0.7 AST 28 ALT 25 Alkaline Phosphatase 110 Total Protein 7.9 Albumin 4.7 Globulin 3.2 Albumin/Globulin Ratio 1.5 Lipase 44 Urine Color Urine Clarity Urine pH Ur Specific [place] Urine Protein Urine Glucose (UA) Urine Ketones Urine Occult Blood Urine Nitrite Urine Bilirubin Urine Urobilinogen Ur Leukocyte Esterase Urine RBC Urine WBC Ur Squamous Epith Cells Amorphous Sediment Urine Bacteria Ur Microscopic Review Urine Culture Comments 11/11/22 20:45 WBC RBC Hgb Hct MCV MCH MCHC RDW Plt Count MPV Neut # (Auto) Lymph # (Auto) Humphreys # (Auto) Eos # (Auto) Baso # (Auto) Absolute Nucleated RBC Nucleated RBC % Sodium Potassium Chloride Carbon Dioxide Anion Gap BUN Creatinine Estimated GFR (MDRD) Glucose Lactic Acid Calcium Total Bilirubin AST ALT Alkaline Phosphatase Total Protein Albumin Globulin Albumin/Globulin Ratio Lipase Urine Color YELLOW Urine Clarity HAZY Urine pH 5.0 Ur Specific [place] >=1.030 H Urine Protein TRACE Urine Glucose (UA) NEGATIVE Urine Ketones TRACE Urine Occult Blood SMALL H Urine Nitrite NEGATIVE Urine Bilirubin NEGATIVE Urine Urobilinogen 0.2 (NORMAL) Ur Leukocyte Esterase SMALL H Urine RBC 0-5 Urine WBC 6-10 H Ur Squamous Epith Cells FEW Squamous Amorphous Sediment Few Urine Bacteria Few Ur Microscopic Review INDICATED Urine Culture Comments INDICATED PD Medical Decision Making - ED course Complexity details: reviewed results, d/w patient, d/w talent acquisition consultant ED course: Patient 67-year-old female with past medical significant for recent hospitalization for partial small bowel obstruction coming to the emergency department with nausea, vomiting, abdominal distention. Abdominal distention with some tenderness noted on arrival to the emergency department with active vomiting. Patient otherwise afebrile and hemodynamically stable. IV access was established and patient given medication for nausea, pain control, IV fluids. Was monitored carefully after being given doses of fentanyl in the emergency department. Labs obtained demonstrated a minimal hypokalemia and and potassium repletion was ordered. The remainder of her labs including her lactic acid were all very reassuring. A CT of the abdomen pelvis however demonstrates possible recurrent partial small bowel obstruction. Her care was discussed directly with Dr. Mcdonald, general surgery who graciously agrees to admit the patient under her service. NG tube was considered and discussed with Dr. Plasencia however per her recommendation and that of the patient's will be held at this time as her symptoms seem to be well controlled and she is not in any acute distress and is no longer having active nausea and vomiting in the department. Departure - Departure Disposition: 68 [facility] DC/Xfer Clinical Impression: SBO (small bowel obstruction)
[2022-11-11] MEDS ORDERED: MIDAZOLAM 2 MG/2 ML VIAL IVP STA (22:10)
--- NOTE | 2022-11-11 22:15 | CT Report ---
PROCEDURE: ABDOMEN/PELVIS W INDICATIONS: concern SBO CONTRAST: IV 100 ML OMNI 350 TECHNIQUE: After the administration of intravenous contrast, 5 mm thick sections acquired from the diaphragms to the symphysis. 5 mm thick coronal and sagittal reformats were acquired. For radiation dose reducti on, the following was used: automated exposure control, adjustment of mA and/or kV according to tiburcio ent size. COMPARISON: CT abdomen pelvis 11/07/2022 FINDINGS: Image quality: Excellent. Lung bases: Unremarkable. Heart: Heart is normal in size. ABDOMEN: Liver: No mass lesion. Gallbladder: Within normal limits without calcified gallstones. Biliary ducts: No biliary ductal dilatation. Pancreas: Unremarkable. Spleen: Normal in size. Adrenal Glands: No adrenal nodules. Kidneys and Ureters: No hydronephrosis. Stomach and Bowel:There is mild segmental dilatation of multiple loops small bowel measuring up to 3 .3 cm in diameter with scattered air-fluid levels and mild small bowel fecalization. There is a trans ition point in the right lower quadrant as seen on axial series 3 image 43, coronal series 6 image 24 , and sagittal series 7 image 53. The transition point is more distal than the transition point demon strated on the recent CT study. The small bowel is nondistended distal to the transition point. The c olon is normal in caliber and wall thickness. There is colonic diverticulosis without acute diverticu litis. No pericecal inflammatory changes to suggest appendicitis. Peritoneum: No abnormal intraperitoneal fluid. No free air. Ventral Wall: No hernia. Abdominal Nodes: No retroperitoneal or mesenteric adenopathy by size criteria. Vessels: Aorta and inferior vena cava are normal in size. PELVIS: Pelvic Organs: Unremarkable. Bladder:The urinary bladder is nondistended. Pelvic Nodes: No enlarged lymph nodes. Miscellaneous: No inguinal hernias. Bones: There are bilateral pars defects at L5 with anterolisthesis of L5 on S1 measuring up to 0.7 cm . Severe degenerative disease also demonstrated at L5-S1. Findings are similar to the prior study. Vi sualized osseous structures demonstrate no suspicious lesions. IMPRESSION: 1. Findings consistent with a small bowel obstruction with a transition point demonstrated in the rig ht lower quadrant described. Of note, the transition point on the current study is more distal compar ed to the recent prior study. Findings of small bowel obstruction discussed with Dr. Khanna on 11/11/2022 at 9:52 PM. Reviewed by: Devin Kamara MD on 11/11/2022 10:14 PM PDT Approved by: Devin Kamara MD on 11/11/2022 10:14 PM PDT Station ID: [id number]
[2022-11-11] MEDS ORDERED: PHENOL THROAT SPRAY 177 ML MM PRN (23:16)
[2022-11-11] MEDS ORDERED: MORPHINE 2 MG/ML CARPUJECT IVP PRN (23:16)
[2022-11-11] MEDS ORDERED: ONDANSETRON 4 MG/2 ML VIAL IVP PRN (23:16)
[2022-11-11] MEDS ORDERED: SODIUM CHLORIDE FLUSH 0.9% 10 ML SYRINGE IVP PRN (23:16)
--- NOTE | 2022-11-11 23:22 | SURGERY HX AND PHYSICAL(T) ---
Surgical History & Physical - Chief Complaint/HPI Chief Complaint: abdominal pain, nausea, vomiting History of Present Illness: Ms. Morelos is a pleasant 67-year-old female who was hospitalized from 11/07-11/09 for a presumed partial small bowel obstruction. She had an NG tube placed and her symptoms improved. Small bowel follow-through demonstrated transition to the cecum within 30 minutes. Her diet was slowly advanced and she tolerated this well. She was discharged home 2 days ago, on Saturday. That evening, she ate some dinner and felt more full than she expected. The following morning she had increased abdominal pain and some nausea but no vomiting. Throughout the day, she felt better. This morning, the patient was feeling well, but throughout the day her nausea and pain worsened again prompting her to return to the ED. She did have 2 episodes of vomiting in the emergency department. She is frustrated and worried that she has a persistent obstruction. She has never had any obstructions prior to this last week. 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 Urinary: None Musculoskeletal: None Psychiatric: None Smoking Status: Never smoker Does the pt drink ETOH?: No Does the pt have substance abuse?: No - Family Hx Family Hx: Unremarkable - Home Meds and Allergies Home Medications: Biotin 1 cap PO DAILY 11/08/22 carBAMazepine [Carbamazepine ER] 200 mg PO QPM 11/08/22 oxyBUTYnin chloride [Oxybutynin Chloride] 5 mg PO BID PRN 11/08/22 Allergies/Adverse Reactions: Allergies Allergy/AdvReac Type Severity Reaction Status Date / Time No Known Drug Allergies Allergy Verified 11/11/22 20:16 - Review of Systems Constitutional: Other (A complete 10 point review of symptoms is otherwise negative except for that noted in HPI and PMH.) - Vital Signs Heart Rate: 69 Blood Pressure: 149/79 Temperature: 36.5 C Respiratory Rate: 12 O2 Saturation: 98 Weight (kg): 78.5 kg Height: 1.63 m - Physical Exam Comments/Other: GEN: No acute distress, appears stated age, alert and oriented HEENT: NCAT, dry mucous membranes, EOMI NEURO: CN II-XII grossly intact, no obvious focal deficits CV: RRR PULM: Nonlabored, on room air ABD: soft, mildly distended, obese, mild diffuse tenderness to palpation, no rebound or guarding CIRCULATORY: no clubbing, cyanosis, or edema SKIN: no lesions appreciated LYMPH: no obvious lymphadenopathy MSK: 4/4 strength in all extremities PSYCH: Affect is appropriate - Patient Review Patient Review: Problems were reviewed with the patient during this visit. Medications were reviewed with the patient during this visit. Allergies were reviewed this patient during this visit. Pertinent Tests Reviewed: All pertitent test for this patient were reviewed. - Assessment & Plan Assessment and Plan: This is a 67-year-old female with: 1. partial small bowel obstruction versus ileus versus gastroenteritis - Only previous surgery is a hysterectomy. The patient has never had any obstructive symptoms prior to this last week. The patient has recurrent symptoms of pain with associated nausea and vomiting The patient's laboratory studies are reassuring I personally reviewed and interpreted the images and report from the patient's CT did scan tonight. I also compared these images to her previous CT scan. Her stomach is mildly dilated but less so than it was when she initially presented last week. She has no signs of free fluid or free air. She has no obvious transition zone and her small bowel is not significantly dilated. The patient had a small bowel follow-through which demonstrated transition to the colon within 30 minutes during her last hospital stay. If she is feeling better tomorrow morning, I plan to repeat her small bowel follow-through. If she demonstrates good transit time again, I think it is more likely that she has a gastroenteritis with a partial ileus. I will attempt to slowly advance her diet. I would like the patient to tolerate at least full liquids for at least 12 hours prior to discharge. 2. seizure disorder The patient has not had a seizure since mid 80s and continues to take her medication without any difficulties. I will restart her home medication once reconciled. Plan to admit the patient under observation status to the floor.
[2022-11-11] MEDS ORDERED: LACTATED RINGERS 1,000 ML IV SCH (23:45)
[2022-11-12 05:58] LABS: CALCIUM 8.5 mg/dL (8.5-10.3); CREATININE 0.7 mg/dL (0.4-1.0); POTASSIUM 3.3 mmol/L (3.5-5.0)
[2022-11-12] MEDS: NS W/20 MEQ KCL 1,000 ML IV SCH ×2 (07:53→16:11)
[2022-11-12] MEDS: SODIUM CHLORIDE FLUSH 0.9% 10 ML SYRINGE IVP SCH ×3 (07:54→16:13)
[2022-11-12] MEDS ORDERED: DIATR MEGLU/DIATRIZOATE SODIUM 120 ML BOTTLE ONE (10:28)
--- NOTE | 2022-11-12 11:24 | XRAY Report ---
PROCEDURE: Small Bowel Follow Through INDICATIONS: r/o obstruction COMPARISON: CT 11/11/2022 CONTRAST: Oral contrast. FINDINGS/IMPRESSION: A single radiographic image was obtained of the abdomen 30 minutes following oral contrast ingestion. Contrast is seen to the distal small bowel, with a small amount in the right lower quadrant cecum. F indings are not suggestive of small bowel obstruction. Reviewed by: Chinmay Arce MD on 11/12/2022 11:22 AM PDT Approved by: Chinmay Arce MD on 11/12/2022 11:22 AM PDT Station ID: [id number]
[2022-11-12] MEDS ORDERED: POTASSIUM CHLORIDE 20 MEQ TABLET PO ONE (12:11)
[2022-11-12] MEDS ORDERED: ONDANSETRON ODT 4 MG TABLET TL PRN (14:22)
--- NOTE | 2022-11-12 14:26 | PROVIDER PROGRESS NOTE ---
Subjective - General Admit Date: 11/11/22 - Other Other Information/Narrative: Pain improved this AM, though still feeling some discomfort. Denies n/v. Early PM recheck: tolerated SBFT, +BM, pain continues to improve, mild nausea with liquids Objective - Patient Data Vital Signs: Vital Signs x48h Temp Pulse Resp BP Pulse Ox 11/12/22 12:00 36.5 C 60 16 119/70 95 11/12/22 07:18 36.5 C 61 16 130/66 97 Weight: Weight 11/10/22 11/11/22 11/12/22 23:59 23:59 23:59 Weight (kg) 78 kg Intake & Output: Intake and Output Totals x24h 11/10/22 11/11/22 11/12/22 23:59 23:59 23:59 Intake Total 1100 1058.333 Balance 1100 1058.333 - Lab Results Lab Results: 11/11/22 20:42 11/12/22 04:50 Other Lab Results: Lab Results x24hrs 11/12/22 11/11/22 11/11/22 Range/Units 04:50 20:45 20:42 WBC (4.8-10.8) x10^3/uL RBC (4.20-5.40) 10^6/uL Hgb (12.0-16.0) g/dL Hct (37.0-47.0) % MCV (81.0-99.0) fL MCH (27.0-31.0) pg MCHC (32.0-36.0) g/dL RDW (12.0-15.0) % Plt Count (130-450) 10^3/uL MPV (7.9-10.8) fL Neut # (Auto) (1.5-6.6) 10^3/uL Lymph # (Auto) (1.5-3.5) 10^3/uL [place] # (Auto) (0.0-1.0) 10^3/uL Eos # (Auto) (0.0-0.7) 10^3/uL Baso # (Auto) (0.0-0.1) 10^3/uL Absolute Nucleated RBC x10^3/uL Nucleated RBC % /100WBC Sodium 141 (135-145) mmol/L Potassium 3.3 L (3.5-5.0) mmol/L Chloride 108 (101-111) mmol/L Carbon Dioxide 27 (21-32) mmol/L Anion Gap 6.0 (6-13) BUN 13 (6-20) mg/dL Creatinine 0.7 (0.4-1.0) mg/dL Estimated GFR (MDRD) 84 L (>89) Glucose 101 H (70-100) mg/dL Lactic Acid 1.1 (0.5-2.2) mmol/L Calcium 8.5 (8.5-10.3) mg/dL Total Bilirubin (0.2-1.0) mg/dL AST (10-42) IU/L ALT (10-60) IU/L Alkaline Phosphatase (42-121) IU/L Total Protein (6.7-8.2) g/dL Albumin (3.2-5.5) g/dL Globulin (2.1-4.2) g/dL Albumin/Globulin Ratio (1.0-2.2) Lipase (22-51) U/L Urine Color YELLOW Urine Clarity HAZY (CLEAR) Urine pH 5.0 (5.0-7.5) PH Ur Specific [place] >=1.030 H (1.002-1.030) Urine Protein TRACE (NEGATIVE) mg/dL Urine Glucose (UA) NEGATIVE (NEGATIVE) mg/dL Urine Ketones TRACE (NEGATIVE) mg/dL Urine Occult Blood SMALL H (NEGATIVE) Urine Nitrite NEGATIVE (NEGATIVE) Urine Bilirubin NEGATIVE (NEGATIVE) Urine Urobilinogen 0.2 (NORMAL) (NORMAL) E.U./dL Ur Leukocyte Esterase SMALL H (NEGATIVE) Urine RBC 0-5 (0-5) /HPF Urine WBC 6-10 H (0-5) /HPF Ur Squamous Epith Cells FEW Squamous (<= Few) Amorphous Sediment Few /LPF Urine Bacteria Few (None Seen) /HPF Ur Microscopic Review INDICATED Urine Culture Comments INDICATED 11/11/22 11/11/22 Range/Units 20:42 20:42 WBC 8.7 (4.8-10.8) x10^3/uL RBC 4.85 (4.20-5.40) 10^6/uL Hgb 14.7 (12.0-16.0) g/dL Hct 43.0 (37.0-47.0) % MCV 88.7 (81.0-99.0) fL MCH 30.3 (27.0-31.0) pg MCHC 34.2 (32.0-36.0) g/dL RDW 12.4 (12.0-15.0) % Plt Count 252 (130-450) 10^3/uL MPV 9.9 (7.9-10.8) fL Neut # (Auto) 6.5 (1.5-6.6) 10^3/uL Lymph # (Auto) 1.4 L (1.5-3.5) 10^3/uL [place] # (Auto) 0.7 (0.0-1.0) 10^3/uL Eos # (Auto) 0.0 (0.0-0.7) 10^3/uL Baso # (Auto) 0.0 (0.0-0.1) 10^3/uL Absolute Nucleated RBC 0.00 x10^3/uL Nucleated RBC % 0.0 /100WBC Sodium 135 (135-145) mmol/L Potassium 3.0 L (3.5-5.0) mmol/L Chloride 97 L (101-111) mmol/L Carbon Dioxide 28 (21-32) mmol/L Anion Gap 10.0 (6-13) BUN 16 (6-20) mg/dL Creatinine 0.9 (0.4-1.0) mg/dL Estimated GFR (MDRD) 63 L (>89) Glucose 122 H (70-100) mg/dL Lactic Acid (0.5-2.2) mmol/L Calcium 9.5 (8.5-10.3) mg/dL Total Bilirubin 0.7 (0.2-1.0) mg/dL AST 28 (10-42) IU/L ALT 25 (10-60) IU/L Alkaline Phosphatase 110 (42-121) IU/L Total Protein 7.9 (6.7-8.2) g/dL Albumin 4.7 (3.2-5.5) g/dL Globulin 3.2 (2.1-4.2) g/dL Albumin/Globulin Ratio 1.5 (1.0-2.2) Lipase 44 (22-51) U/L Urine Color Urine Clarity (CLEAR) Urine pH (5.0-7.5) PH Ur Specific [place] (1.002-1.030) Urine Protein (NEGATIVE) mg/dL Urine Glucose (UA) (NEGATIVE) mg/dL Urine Ketones (NEGATIVE) mg/dL Urine Occult Blood (NEGATIVE) Urine Nitrite (NEGATIVE) Urine Bilirubin (NEGATIVE) Urine Urobilinogen (NORMAL) E.U./dL Ur Leukocyte Esterase (NEGATIVE) Urine RBC (0-5) /HPF Urine WBC (0-5) /HPF Ur Squamous Epith Cells (<= Few) Amorphous Sediment /LPF Urine Bacteria (None Seen) /HPF Ur Microscopic Review Urine Culture Comments - Imaging Results Radiology Imaging: positive: Final report received Imaging Results Comments: SBFT shows transit of contrast to colon in 30 minutes, no signs of obstruction. - Current Medications Current Medications: Current Medications Generic Name Dose Route Start Last Admin Trade Name Freq PRN Reason Stop Dose Admin Fentanyl 50 mcg 11/11/22 20:46 11/11/22 21:03 Fentanyl 100 Mcg/2 Ml Vial IVP 50 mcg PRN PRN Administration Abdominal Pain Potassium Chloride/Sodium Chloride 1,000 mls @ 125 mls/hr 11/12/22 08:00 11/12/22 07:53 Normal Saline 0.9% W/20 Meq Kcl IV 125 mls/hr .Q8H KURTIS Administration Morphine Sulfate 2 mg 11/11/22 23:16 11/12/22 07:53 Morphine 2 Mg/Ml Carpuject IVP 2 mg Q2HR PRN Administration Pain 8 to 10 Ondansetron HCl 4 mg 11/11/22 23:16 11/12/22 10:46 Ondansetron 4 Mg/2 Ml Vial IVP 4 mg Q6HR PRN Administration Nausea / Vomiting Sodium Chloride 10 ml 11/12/22 01:00 11/12/22 07:54 Sodium Chloride Flush 0.9% 10 Ml Syringe IVP 10 ml 0100,0900,1700 KURTIS Administration - Physical Exam General Appearance: positive: No acute distress, Alert, Lethargic Eyes Bilateral: positive: PERRL, EOMI ENT: positive: No signs of dehydration Neck: positive: Trachea midline Respiratory: positive: No respiratory distress Cardiovascular: positive: Regular rate & rhythm Abdomen: positive: Non-tender, No distention, Guarding, Rebound. negative: Mass Skin: positive: Color nml, No rash Extremities: positive: Non-tender Neurologic/Psychiatric: positive: Oriented x3 Impression/Plan - Problem List Problem List: This is a 67-year-old female with: 1. partial small bowel obstruction versus ileus versus gastroenteritis, improving - Only previous surgery is a hysterectomy. The patient has never had any obstructive symptoms prior to this last week. Pain and nausea improved this AM. repeat SBFT again shows no sign of obstruction. I suspect patient has gastroenteritis with possible ileus component. Will continue to encourage PO as tolerated. Will try PO zofran and add levsin for abdominal cramping. Patient specifically denies epigastric and RUQ pain. No GERD history or current symptoms. Will SLIV if tolerating PO well. 2. Hypokalemia, improving - added K to IVF and gave PO dose this PM. Will recheck in AM 2. seizure disorder, stable Home med restarted DVT Ppx: SCD's Continue observation status at this time. I am hopeful the patient will continue to improve this evening. Anticipate possible discharge tomorrow.
[2022-11-12] MEDS: ACETAMINOPHEN 500 MG TABLET PO PRN ×2 (16:12→20:46)
[2022-11-12] MEDS: HYOSCYAMINE SL 0.125 MG TABLET SL PRN (16:12)
[2022-11-12] MEDS: carBAMazepine ER 200 MG TABLET PO SCH (20:46)
[2022-11-13] MEDS: SODIUM CHLORIDE FLUSH 0.9% 10 ML SYRINGE IVP SCH ×4 (04:49→23:50)
[2022-11-13 06:06] LABS: CALCIUM 8.3 mg/dL (8.5-10.3); CREATININE 0.6 mg/dL (0.4-1.0); POTASSIUM 3.6 mmol/L (3.5-5.0)
[2022-11-13] MEDS: NS W/20 MEQ KCL 1,000 ML IV SCH ×2 (06:48→14:25)
--- NOTE | 2022-11-13 07:04 | PROVIDER PROGRESS NOTE ---
Subjective - General Admit Date: 11/11/22 - Other Other Information/Narrative: Patient with new onset epigastric pain this AM. Tolerating full liquids. Some nausea, no vomiting. Multiple loose BM's since SBFT. Objective - Patient Data Reviewed Vital Signs: Yes Vital Signs: Vital Signs x48h Temp Pulse Resp BP Pulse Ox 11/13/22 04:21 36.4 C L 59 L 16 141/65 H 94 11/13/22 00:15 36.3 C L 94 20 128/64 94 Weight: Weight 11/11/22 11/12/22 11/13/22 23:59 23:59 23:59 Weight (kg) 78 kg Intake & Output: Intake and Output Totals x24h 11/11/22 11/12/22 11/13/22 23:59 23:59 23:59 Intake Total 1100 3138.333 1000 Output Total 300 Balance 1100 2838.333 1000 - Lab Results Lab Results: 11/11/22 20:42 11/13/22 04:48 Other Lab Results: Lab Results x24hrs 11/13/22 Range/Units 04:48 Sodium 141 (135-145) mmol/L Potassium 3.6 (3.5-5.0) mmol/L Chloride 110 (101-111) mmol/L Carbon Dioxide 26 (21-32) mmol/L Anion Gap 5.0 L (6-13) BUN 9 (6-20) mg/dL Creatinine 0.6 (0.4-1.0) mg/dL Estimated GFR (MDRD) 100 (>89) Glucose 92 (70-100) mg/dL Calcium 8.3 L (8.5-10.3) mg/dL - Current Medications Current Medications: Current Medications Generic Name Dose Route Start Last Admin Trade Name Freq PRN Reason Stop Dose Admin Acetaminophen 500 mg 11/12/22 14:22 11/12/22 20:46 Acetaminophen 500 Mg Tablet PO 500 mg Q4HR PRN Administration Pain or Fever > 38C (100.4F) Carbamazepine 200 mg 11/12/22 21:00 11/12/22 20:46 Carbamazepine Er 200 Mg Tablet PO 200 mg QPM KURTIS Administration Fentanyl 50 mcg 11/11/22 20:46 11/11/22 21:03 Fentanyl 100 Mcg/2 Ml Vial IVP 50 mcg PRN PRN Administration Abdominal Pain Hyoscyamine 0.125 mg 11/12/22 14:22 11/12/22 16:12 Hyoscyamine Sl 0.125 Mg Tablet SL 0.125 mg AC PRN Administration Abdominal Pain Potassium Chloride/Sodium Chloride 1,000 mls @ 125 mls/hr 11/12/22 08:00 11/13/22 06:48 Normal Saline 0.9% W/20 Meq Kcl IV Not Given .Q8H KURTIS Morphine Sulfate 2 mg 11/11/22 23:16 11/12/22 07:53 Morphine 2 Mg/Ml Carpuject IVP 2 mg Q2HR PRN Administration Pain 8 to 10 Ondansetron HCl 4 mg 11/11/22 23:16 11/12/22 10:46 Ondansetron 4 Mg/2 Ml Vial IVP 4 mg Q6HR PRN Administration Nausea / Vomiting Sodium Chloride 10 ml 11/12/22 01:00 11/13/22 04:49 Sodium Chloride Flush 0.9% 10 Ml Syringe IVP 10 ml 0100,0900,1700 KURTIS Administration - Physical Exam General Appearance: positive: No acute distress, Alert Eyes Bilateral: positive: PERRL, EOMI ENT: positive: No signs of dehydration Neck: positive: Trachea midline Respiratory: positive: No respiratory distress Cardiovascular: positive: Regular rate & rhythm Abdomen: positive: Tenderness (mild epigastric, otherwise non tender). negative: Guarding, Rebound, Mass Skin: positive: Color nml, No rash Extremities: positive: Full ROM, Nml appearance Neurologic/Psychiatric: positive: Oriented x3 Impression/Plan - Problem List Problem List: This is a 67-year-old female with: 1. partial small bowel obstruction versus ileus versus gastroenteritis, improving - Only previous surgery is a hysterectomy. The patient has never had any obstructive symptoms prior to this last week. Pain and nausea improved this AM. repeat SBFT again shows no sign of obstruction. I suspect patient has gastroenteritis with possible ileus component. Will continue to encourage PO as tolerated. Will try PO zofran and add levsin for abdominal cramping. Patient specifically denies epigastric and RUQ pain. No GERD history or current sympto ms. Will SLIV if tolerating PO well. 2. New onset epigastric pain - given this is the patient's second admission in the last week for n/v and diffuse abdominal pain, with new symptom of localized epigastric pain, I would like to r/o gasritis and PUD. EGD planned for tomorrow as patient has already eaten breakfast this AM. I discussed r/b/a of EGD including bleeding and perforation with the patient. She voiced, understanding, her questions were answered, and she wished to proceed. Will obtain written consent this PM. 2. Hypokalemia, resolved 3. seizure disorder, stable Home med restarted DVT Ppx: SCD's Continue observation status at this time. I discussed status with [facility] team, and no change is needed even with planned procedure tomorrow AM. I am hopeful the patient will continue to improve and anticipate possible discharge tomorrow.
[2022-11-13] MEDS: ACETAMINOPHEN 500 MG TABLET PO PRN ×3 (07:55→20:46)
[2022-11-13] MEDS: HYOSCYAMINE SL 0.125 MG TABLET SL PRN ×2 (09:28→16:06)
[2022-11-13] MEDS: carBAMazepine ER 200 MG TABLET PO SCH (20:46)
[2022-11-13] MEDS: LACTATED RINGERS 1,000 ML IV SCH (23:50)
[2022-11-14] MEDS: SODIUM CHLORIDE FLUSH 0.9% 10 ML SYRINGE IVP SCH (08:27)
[2022-11-14] MEDS: LACTATED RINGERS 1,000 ML IV SCH (08:27)
--- NOTE | 2022-11-14 13:04 | ANESTHESIA ---
Pre-Anesthesia VS, & Labs - Diagnosis r/o SBO, abdominal pain, N/V - Procedure EGD Vital Signs: Temp Pulse Resp BP Pulse Ox O2 Flow Rate 36.3 C L 64 16 140/71 H 95 11/14/22 07:21 11/14/22 07:21 11/14/22 07:21 11/14/22 07:21 11/14/22 07:21 Height: 5 ft 4 in Weight (kg): 78 kg Body Mass Index: 29.5 BMI Classification: Overweight - NPO >8 hours - Is Patient ?: No - Lab Results Current Lab Results: Laboratory Tests 11/13/22 04:48: Sodium 141, Potassium 3.6, Chloride 110, Carbon Dioxide 26, Anion Gap 5.0 L, BUN 9, Creatinine 0.6, Estimated GFR (MDRD) 100, Glucose 92, Calcium 8.3 L 11/12/22 04:50: Sodium 141, Potassium 3.3 L, Chloride 108, Carbon Dioxide 27, Anion Gap 6.0, BUN 13, Creatinine 0.7, Estimated GFR (MDRD) 84 L, Glucose 101 H, Calcium 8.5 11/11/22 20:42: Lactic Acid 1.1 11/11/22 20:42: Sodium 135, Potassium 3.0 L, Chloride 97 L, Carbon Dioxide 28, Anion Gap 10.0, BUN 16, Creatinine 0.9, Estimated GFR (MDRD) 63 L, Glucose 122 H , Calcium 9.5, Total Bilirubin 0.7, AST 28, ALT 25, Alkaline Phosphatase 110, Total Protein 7.9, Albumin 4.7, Globulin 3.2, Albumin/Globulin Ratio 1.5, Lipase 44 11/11/22 20:42: WBC 8.7, RBC 4.85, Hgb 14.7, Hct 43.0, MCV 88.7, MCH 30.3, MCHC 34.2, RDW 12.4, Plt Count 252, MPV 9.9, Neut # (Auto) 6.5, Lymph # (Auto) 1.4 L, [place] # (Auto) 0.7, Eos # (Auto) 0.0, Baso # (Auto) 0.0, Absolute Nucleated RBC 0.00, Nucleated RBC % 0.0 Lab results reviewed: Yes Fish Bones: 11/11/22 20:42 11/13/22 04:48 Home Medications and Allergies Active Medications Acetaminophen (Acetaminophen 500 Mg Tablet) 500 mg PO Q4HR PRN PRN Reason: Pain or Fever > 38C (100.4F) Last Admin: 11/13/22 20:46 Dose: 500 mg Carbamazepine (Carbamazepine Er 200 Mg Tablet) 200 mg PO QPM [facility] Last Admin: 11/13/22 20:46 Dose: 200 mg Fentanyl (Fentanyl 100 Mcg/2 Ml Vial) 50 mcg IVP PRN PRN PRN Reason: Abdominal Pain Last Admin: 11/11/22 21:03 Dose: 50 mcg Hyoscyamine (Hyoscyamine Sl 0.125 Mg Tablet) 0.125 mg SL AC PRN PRN Reason: Abdominal Pain Last Admin: 11/13/22 16:06 Dose: 0.125 mg Lactated Ringer's (Lr) 1,000 mls @ 125 mls/hr IV .Q8H [facility] [place] Last Admin: 11/14/22 08:27 Dose: 125 mls/hr Morphine Sulfate (Morphine 2 Mg/Ml Carpuject) 2 mg IVP Q2HR PRN PRN Reason: Pain 8 to 10 Last Admin: 11/12/22 07:53 Dose: 2 mg Ondansetron HCl (Ondansetron 4 Mg/2 Ml Vial) 4 mg IVP Q6HR PRN PRN Reason: Nausea / Vomiting Last Admin: 11/12/22 10:46 Dose: 4 mg Ondansetron HCl (Ondansetron Odt 4 Mg Tablet) 4 mg TL Q6HR PRN PRN Reason: Nausea / Vomiting Phenol/Menthol (Phenol Throat [place] 177 Ml) 2 sprays MM Q1H PRN PRN Reason: PAIN Sodium Chloride (Sodium Chloride Flush 0.9% 10 Ml Syringe) 10 ml IVP 0100,0900,1700 [facility] [place] Last Admin: 11/14/22 08:27 Dose: Not Given Sodium Chloride (Sodium Chloride Flush 0.9% 10 Ml Syringe) 10 ml IVP PRN PRN PRN Reason: NEEDED PER PROVIDER ORDERS carBAMazepine [Carbamazepine ER] 200 mg PO QPM 11/08/22 Allergies/Adverse Reactions: Allergies Allergy/AdvReac Type Severity Reaction Status Date / Time No Known Drug Allergies Allergy Verified 11/11/22 20:16 Anes History & Medical History - Anesthetic History Anesthesia Complications: reports: No previous complications Family history of Anesthesia Complications: Denies Family history of Malignant Hyperthermia: Denies - Medical History Cardiovascular: reports: None Pulmonary: reports: None Gastrointestinal: reports: Chronic constipation, Other Urinary: reports: Frequency Neuro: reports: Seizure disorder Musculoskeletal: reports: None Endocrine/Autoimmune: reports: None Blood Disorders: reports: None Skin: reports: None Smoking Status: Former smoker Other Past Medical History: glasses, partial dentures upper/lower and left at home, SBO - Surgical History Gynecologic: reports: Hysterectomy, Other Exam General: Alert, Oriented x3, Cooperative Dental: Partials Upper (out), Partials Lower (out) Mouth Openin Fingerbreadth Neck Mobility: Normal Mallampati classification: II Thyromental Distance: 4-6 cm Respiratory: Lungs clear, Normal breath sounds, No respiratory distress Cardiovascular: Regular rate Neurological: Normal speech Mental/Cognitive Status: Alert/Oriented X3, Normal for patient Cognitive Status: Within normal limits Plan Anesthesia Type: Total IV Consent for Procedure(s) Verified and Reviewed: Yes Code Status: Attempt Resuscitation ASA classification: 2-Mild systemic disease Is this case an emergency?: No
[2022-11-14] MEDS ORDERED: MIDAZOLAM 2 MG/2 ML VIAL ONE (13:24)
[2022-11-14] MEDS ORDERED: LIDOCAINE-PF 2% 10 ML AMP SUBQ ONE (13:25)
--- NOTE | 2022-11-14 13:58 | ANESTHESIA POST OP EVALUATION ---
Anesthesia Post Eval - Post Anesthesia Eval Vitals: Last Vital Signs Temp 36.6 C 11/14/22 12:00 Pulse 68 11/14/22 12:00 Resp 16 11/14/22 12:00 BP 153/76 H 11/14/22 12:00 Pulse Ox 96 11/14/22 12:00 O2 Flow Rate CV Function Including HR & BP: Stable Pain Control: Satisfactory Nausea & Vomiting: Negative Mental Status: Baseline Respiratory Status: Airway Patent Hydration Status: Satisfactory Anesthesia Complications: None
--- NOTE | 2022-11-14 14:05 | DISCHARGE SUMMARY ---
"Discharge Summary Admit Date: 11/11/22 Discharge Date: 11/14/22 Discharging Provider: Dr. Simona Plasencia Condition at Discharge: Good Discharge Disposition: 01 Home, Self Care - DIAGNOSES Admission Diagnoses: abdominal pain, nausea, vomiting Discharge Diagnoses with Status of Each Condition: gastroenteritis, improving epigastric pain, improving - HPI History of Present Illness: Patient presented after recent hospitalization for presumed small bowel obstruction. She had initially improved, been discharged, and then began having increased pain and nausea again. On the date of presentation, she had several episodes of emesis. CT prior to readmission was slightly improved from CT at time of prior admission. To r/o obstruction, the patient was readmitted. - CONSULTS | PROCEDURES Consultations: none Procedures: EGD with biopsy on 11/14/22 - HOSPITAL COURSE Hospital Course: The patient was readmitted. Repeat SBFT again showed no obstruction. The patient was able to slowly advance to a soft diet but then developed new onset e pigastric abdominal pain. Upper endoscopy demonstrates some slight distal gastritis but is overall reassuring and does not show signs of GI bleed, PUD, or masses. At this time, she is cleared for discharge to home with plan for f/u with me in clinic in two weeks. - ALLERGIES Allergies/Adverse Reactions: Allergies Allergy/AdvReac Type Severity Reaction Status Date / Time No Known Drug Allergies Allergy Verified 11/11/22 20:16 - MEDICATIONS Home Medications: Ambulatory Orders Medication Instructions Recorded Confirmed carBAMazepine [Carbamazepine ER] 200 mg PO QPM 11/08/22 11/11/22 - PHYSICAL EXAM AT DISCHARGE General Appearance: positive: No acute distress, Alert Eyes Bilateral: positive: Normal inspection, EOMI ENT: positive: No signs of dehydration Neck: positive: Trachea midline Respiratory: positive: No respiratory distress Cardiovascular: positive: Regular rate & rhythm Abdomen: positive: Tenderness (slight epigastric). negative: Guarding, Rebound, Mass Skin: positive: No rash Extremities: positive: Full ROM Neurologic/Psychiatric: positive: Oriented x3 - LABS Result Diagrams: 11/11/22 20:42 11/13/22 04:48 - DIAGNOSTIC IMAGING Diagnostic Imaging Results Comments: SBFT demonstrates no obstruction - FOLLOW UP Follow Up: Dr. Plasencia, 2 weeks - TIME SPENT Time Spent in Discharge (Minutes): 35"
--- NOTE | 2022-11-14 14:14 | Discharge Plan ---
Discharge Plan Problem Reviewed?: Yes Disposition: Home, Self Care Condition: Good Prescriptions: Ondansetron Odt [Zofran Odt] 4 mg TL Q6HR PRN #30 tab PRN Reason: Nausea / Vomiting Hyoscyamine [Levsin] 0.125 mg SL AC PRN #30 tab PRN Reason: Abdominal Pain Diet: Soft Activity Restrictions: No Restrictions Shower Restrictions: No Driving Restrictions: No Weight Bearing: Full Weight Instruction Topics: ED Food Poison Or Gastroenteritis Health Concerns: none Plan of Treatment: slowly advance diet Care Goals: tolerate regular diet Assessment: improved Additional Instructions or Follow Up instructions: follow up with Dr. Plasencia 11/28 at 11:15AM No Smoking: If you smoke, Please STOP! Call for help. Follow-up with: Jose Juan Cevallos MD [Primary Care Provider] - Briana Plasencia MD [Provider Admit Priv/Credential] - (11/28 at 11:15)
[2022-11-14 15:58] VITALS: BP 150/80
== END 2022-11-14 15:55 | disposition home or self-care (01) ==
LOC: ED 20:13 → MS2 23:16
PROVIDERS: ADMIT Surgery; ATTEND Surgery
PROC: 0DB78ZX Excision of Stomach, Pylorus, Via Natural or Artificial Opening Endoscopic, Diagnostic (ICD-10-PCS; 2022-11-14)
PROC: 0DB68ZX Excision of Stomach, Via Natural or Artificial Opening Endoscopic, Diagnostic (ICD-10-PCS; 2022-11-14)
PROC: 0DB48ZX Excision of Esophagogastric Junction, Via Natural or Artificial Opening Endoscopic, Diagnostic (ICD-10-PCS; principal; 2022-11-14 12:15)
DX: K52.9 Noninfective gastroenteritis and colitis, unspecified (principal); K29.50 Unspecified chronic gastritis without bleeding; R10.13 Epigastric pain; K44.9 Diaphragmatic hernia without obstruction or gangrene; K31.7 Polyp of stomach and duodenum; E87.6 Hypokalemia; G40.909 Epilepsy, unspecified, not intractable, without status epilepticus
CPT/HCPCS: 36415; 43239; 74177; 74250; 80048; 80053; 81001; 83605; 83690; 85025; 87086; 96361; 96365; 96375; 96376; 99284; 99285; A9270; G0378; J7120; Q9963; Q9967; 81003

== ENCOUNTER 2023-03-30 10:18 | Outpatient (CLI) | payer BC ==
--- NOTE | 2023-03-30 12:06 | XRAY Report ---
PROCEDURE: Knee 3 View BILAT INDICATIONS: KNEE PAIN BILATERAL TECHNIQUE: 3 views of the bilateral knee(s) were acquired. COMPARISON: None. FINDINGS: Bones: No fractures or dislocations. No suspicious bony lesions. There is bilateral tricompartmen vale moderate arthritic narrowing. It is relatively symmetric. Particular osteophytes are present most prominent at the lateral compartments bilaterally. Soft tissues: No knee joint effusion. No suspicious soft tissue calcifications or masses. IMPRESSION: Moderate tricompartmental arthritic change. Reviewed by: Janiya Morris MD on 03/30/2023 12:05 PM PDT Approved by: Janiya Morris MD on 03/30/2023 12:05 PM PDT Station ID: [id number]
== END 2023-03-30 10:19 | disposition home or self-care (01) ==
LOC: DI 10:18
PROVIDERS: ATTEND Physician Assistant Medical
DX: M17.0 Bilateral primary osteoarthritis of knee (principal)

== ENCOUNTER 2023-03-30 12:19 | Outpatient (CLI) | payer BC ==
--- NOTE | 2023-03-30 14:08 | Ultrasound Report ---
PROCEDURE: Duplex Ext Veins Left INDICATIONS: NECK PAIN, LEFT LEG EDEMA TECHNIQUE: Real-time imaging, as well as color and pulse Doppler interrogation, were performed of the lower extr emity deep veins from the inguinal ligament to the popliteal fossa. Attempted visualization of the ca lf veins was performed. COMPARISON: None. FINDINGS: The deep veins are normally compressible, and free of intraluminal thrombus. Color and pu lse Doppler demonstrate normal phasic intraluminal flow. There is normal augmentation response to di stal compression maneuver. IMPRESSION: No deep venous thrombosis of the visualized lower extremity. Reviewed by: Janiya Morris MD on 03/30/2023 2:07 PM PDT Approved by: Janiya Morris MD on 03/30/2023 2:07 PM PDT Station ID: [id number]
--- NOTE | 2023-03-30 14:08 | Ultrasound Report ---
PROCEDURE: Carotid Doppler Complete INDICATIONS: NECK PAIN,LEFT LEG EDEMA TECHNIQUE: Color and pulse Doppler interrogation was performed of both carotid systems, with image documentation and velocity measurements. COMPARISON: None. FINDINGS: Right side: Brachial blood pressure: 175/86 mm Hg. Common carotid artery peak systolic velocity: 74 cm/sec. Internal carotid artery peak systolic velocity: 76 cm/sec. Internal carotid artery end diastolic velocity: 23 cm/sec. External carotid artery peak systolic velocity: 98 cm/sec. ICA/CCA peak systolic ratio: 1.0 . Carroll scale imaging description: Mild plaque at the bifurcation Percent internal carotid artery stenosis: Less than 50%. Vertebral artery: Flow direction is antegrade. Left side: Brachial blood pressure: 178/82 mm Hg. Common carotid artery peak systolic velocity: 52 cm/sec. Internal carotid artery peak systolic velocity: 111 cm/sec. Internal carotid artery end diastolic velocity: 43 cm/sec. External carotid artery peak systolic velocity: 56 cm/sec. ICA/CCA peak systolic ratio: 2.1 . Carroll scale imaging description: Mild plaque bifurcates Percent internal carotid artery stenosis: Less than 50%. Vertebral artery: Flow direction is antegrade. IMPRESSION: 1. In the right internal carotid artery, there is less than 50 percent stenosis based on peak systoli c velocity criteria. 2. In the left internal carotid artery, there is less than 50 percent stenosis based on peak systolic velocity criteria. 3. Antegrade blood flow within the right vertebral artery. 4. Antegrade blood flow within the left vertebral artery. The estimate of stenosis included in the report of the imaging study was calculated using the [facility]-end orsed standards of carotid artery stenosis. Reviewed by: Janiya Morris MD on 03/30/2023 2:07 PM PDT Approved by: Janiya Morris MD on 03/30/2023 2:07 PM PDT Station ID: [id number]
== END 2023-03-30 12:20 | disposition home or self-care (01) ==
LOC: DI 12:19
PROVIDERS: ATTEND Physician Assistant Medical
DX: R60.0 Localized edema (principal); I65.23 Occlusion and stenosis of bilateral carotid arteries; M17.0 Bilateral primary osteoarthritis of knee
CPT/HCPCS: 93880

== ENCOUNTER 2023-06-25 08:43 | Outpatient (CLI) | payer BC ==
--- NOTE | 2023-06-25 15:36 | Mammography Report ---
BILATERAL DIGITAL SCREENING MAMMOGRAM 3D/2D: 06/25/2023 CLINICAL: Routine screening. Family history of breast cancer. Comparison is made to exams dated: 05/19/2021 mammogram, 07/13/2016 mammogram, 06/17/2015 ultrasound, 06/17/2015 mammogram, 02/05/2014 mammogram, and 12/05/2012 mammogram - [facility]. There are scattered areas of fibroglandular density in both breasts (category b / 25%-50% glandular t issue). No significant masses, calcifications, or other findings are seen in either breast. There has been no significant interval change. IMPRESSION: NEGATIVE There is no mammographic evidence of malignancy. A 1 year screening mammogram is recommended. Based on the Tyrer Cuzick model (a risk assessment model) the patients lifetime risk is 7.6% and her 10 year risk is 3.8%. According to the ACR, ACS, and NCCN guidelines, an annual breast MRI exam along with mammogram is recommended if the patients lifetime risk is 20% or greater. This exam was interpreted at Station ID: [id number]. NOTE: For mammograms, a report in lay terms will be sent to the patient. Approximately 15% of breast malignancies will not be visualized mammographically. In the management of a palpable breast mass, a negative mammogram must not discourage biopsy of a clinically suspicious lesion. Electronically Signed By: Tay [email or web address]:06/25/2023 12:18:11 ACR BI-RADS Category 1: Negative 3341F PARENCHYMAL PATTERN: (A) - The breast(s) demonstrate(s) scattered fibroglandular densities. BI-RADS CATEGORY: (1) - 1 Mammogram [id number] 1 year screening LATERALITY: (B)
== END 2023-06-25 08:44 | disposition home or self-care (01) ==
LOC: DI.N 08:43
DX: Z12.31 Encounter for screening mammogram for malignant neoplasm of breast (principal); Z80.3 Family history of malignant neoplasm of breast; R92.323 Mammographic fibroglandular density, bilateral breasts

== ENCOUNTER 2023-12-19 07:50 | Outpatient (CLI) | payer BC ==
[2023-12-19 08:01] LABS: BASOPHILS # (AUTO) 0.1 10^3/uL (0.0-0.1); HCT - HEMATOCRIT 41.1 % (37.0-47.0); HGB - HEMOGLOBIN 13.4 g/dL (12.0-16.0); LYMPHOCYTES # (AUTO) 1.1 10^3/uL (1.5-3.5); LYMPHOCYTES % (AUTO) 23.2 %; MEAN CORPUSCULAR HGB CONC 32.6 g/dL (32.0-36.0); MEAN CORPUSCULAR VOLUME 91.9 fL (81.0-99.0); MONOCYTES # (AUTO) 0.4 10^3/uL (0.0-1.0); MONOCYTES % (AUTO) 8.6 %; NEUTROPHILS # (AUTO) 3.3 10^3/uL (1.5-6.6); NEUTROPHILS % (AUTO) 66.8 %; PLT - PLATELET COUNT 207 10^3/uL (130-450); RED BLOOD COUNT 4.47 10^6/uL (4.20-5.40); WHITE BLOOD COUNT 4.9 x10^3/uL (4.8-10.8)
[2023-12-19 08:12] LABS: ESTIMATED AVERAGE GLUCOSE 108 mg/dL (70-100); HEMOGLOBIN A1c% 5.4 % (4.27-6.07)
[2023-12-19 08:18] LABS: ALBUMIN 4.4 g/dL (3.2-5.5); ALBUMIN/GLOBULIN RATIO 1.7 (1.0-2.2); ALKALINE PHOSPHATASE 102 IU/L (42-121); ALT ALANINE AMINOTRANSFERASE 12 IU/L (10-60); AST ASPARTATE AMINOTRANSFERASE 15 IU/L (10-42); BILIRUBIN,TOTAL 0.4 mg/dL (0.2-1.0); BUN - BLOOD UREA NITROGEN 19 mg/dL (6-20); CALCIUM 9.2 mg/dL (8.5-10.3); CARBON DIOXIDE - CO2 30 mmol/L (21-32); CHLORIDE 106 mmol/L (101-111); CHOL/HDL RATIO 3.6 (<4.4); CHOLESTEROL 204 mg/dL; CREATININE 0.7 mg/dL (0.6-1.3); GFR - MDRD 84 (>89); GLUCOSE 109 mg/dL (74-104); HDL CHOLESTEROL 56 mg/dL; LDL CHOLESTEROL,CALCULATED 122 mg/dL; LDL/HDL RATIO 2.2 (<4.4); POTASSIUM 3.8 mmol/L (3.5-4.5); SODIUM 141 mmol/L (135-145); TRIGLYCERIDES 130 mg/dL; VLDL CHOLESTEROL 26 mg/dL
[2023-12-19 08:32] LABS: THYROID STIMULATING HORMONE 1.76 uIU/mL (0.34-5.60)
== END 2023-12-19 07:51 | disposition home or self-care (01) ==
LOC: LAB 07:50
PROVIDERS: ATTEND Family Medicine
DX: K52.89 Other specified noninfective gastroenteritis and colitis (principal); E78.5 Hyperlipidemia, unspecified; R73.9 Hyperglycemia, unspecified; R56.9 Unspecified convulsions
CPT/HCPCS: 36415; 80053; 80061; 83036; 83721; 84443; 85025